=== PATIENT | female | born 1950 | race Caucasian/White ===

== ENCOUNTER 2017-05-12 15:48 | Emergency (ER) | payer MEDICARE, MEDICAID ==
[2017-05-12 16:24] VITALS: BP 00/00
--- NOTE | 2017-05-12 16:28 | UC ---
Skin Complaint HPI - HPI Summary HPI Summary: Pt presents with left forearm abrasion sustained 5 days ago. She tells me that she was getting out of bed and mis-stepped. Slide her left arm against the bed frame and sustained an abrasion to the dorsal aspect. Did not hit her head or have LOC. Her press tool maker applied neosporin and bandaged the area. She was at her pain management appointment earlier today with Dr. Kaba and he suggested pt be seen for evaluation of this abrasion. She thinks her last tetanus was within the last 5 years. - History of Current Complaint Chief Complaint: UCLaceration Time Seen by Provider: 05/12/17 16:06 Stated Complaint: ARM LACERATION Hx Obtained From: Patient, Family/Cookie Mixer Helper Pain Intensity: 2 - Allergy/Home Medications Allergies/Adverse Reactions: Allergies Allergy/AdvReac Type Severity Reaction Status Date / Time MS Hydrocortisone Allergy Severe Anaphylatic Verified 01/05/15 18:44 [From Cortizone-5] Shock hydrocortisone Allergy Swelling Verified 05/12/17 16:26 Of Face,Lips,& Throat Iodinated Contrast- Oral and Allergy Swelling Verified 05/12/17 16:26 IV Dye Of Face,Lips,& Throat meperidine [From Demerol] Allergy Swelling Verified 05/12/17 16:26 Of Face,Lips,& Throat morphine Allergy Swelling Verified 05/12/17 16:26 Of Face,Lips,& Throat Penicillins Allergy Swelling Verified 05/12/17 16:26 Of Face,Lips,& Throat bee stings Allergy Severe Swelling Uncoded 01/05/15 18:44 Of Face,Lips,& Throat hydrocortisone Allergy Anaphylatic Uncoded 05/12/17 16:27 Shock mushrooms Allergy Swelling Uncoded 01/05/15 18:44 Of Face,Lips,& Throat Review of Systems Constitutional: Negative Skin: Other - Abrasion left forearm Respiratory: Negative Cardiovascular: Negative Gastrointestinal: Negative Musculoskeletal: Negative Neurological: Negative Psychological: Negative All Other Systems Reviewed And Are Negative: Yes PMH/Surg Hx/FS Hx/Imm Hx Respiratory History: COPD, Asthma Psychological History: Anxiety Other History Of: Anticoagulant Therapy - Surgical History Surgical History: Yes Surgery Procedure, Year, and Place: Back - Family History Known Family History: Positive: Unknown - Social History Alcohol Use: None Substance Use Type: None Smoking Status (MU): Light Every Day Tobacco Smoker Household Exposure Type: Cigarettes Physical Exam - Summary Physical Exam Summary: GENERAL: NAD. WDWN. No pain distress. SKIN: 6.0cm in length and 1.0cm in width abrasion to left dorsal forearm. Yellow purulent drainage. No erythema, edema, or bleeding. No warmth or streaking. NECK: Supple. Nontender. No lymphadenopathy. CHEST: CTAB. No r/r/w. No accessory muscle use. Breathing comfortably and in no distress. CV: Pulses intact radial and ulnar. MSK: Left wrist, arm, and elbow: NTTP. Strength 5/5 including slot supervisor strength. No edema or obvious bony deformities. NEURO: Alert. Sensations intact hand and all fingers. PSYCH: Age appropriate behavior. Triage Information Reviewed: Yes Vital Signs: Initial Vital Signs Temp 98.0 F 05/12/17 16:19 Pulse 64 05/12/17 16:19 Resp 18 05/12/17 16:19 BP 00/00 05/12/17 16:19 Pulse Ox 97 05/12/17 16:19 Course/Dx - Course Course Of Treatment: Wound was dressed with mepilex. Will cover her with clindamycin. Advised to change dressing daily and f/u with PCP in 1 week. - Diagnoses Provider Diagnoses: Left forearm wound infection Discharge - Sign-Out/Discharge Documenting (check all that apply): Discharge - Discharge Plan Condition: Stable Disposition: HOME Prescriptions: Clindamycin HCl 150 mg PO TID #21 capsule Patient Education Materials: Wound Infection (DC) Referrals: Kyle Tsang MD [Primary Care Provider] - Additional Instructions: If you develop a fever, shortness of breath, chest pain, new or worsening symptoms - please call your PCP or go to the ED. 1) Please change your dressing daily. 2) Follow up in 1 week with your PCP for re-evaluation of your left arm wound. - Billing Disposition and Condition Condition: STABLE Disposition: HOME
== END 2017-05-12 17:00 | disposition home or self-care (01) ==
LOC: UCEAST 15:48
DX: S50.812A Abrasion of left forearm, initial encounter (principal); L08.9 Local infection of the skin and subcutaneous tissue, unspecified; W22.03XA Walked into furniture, initial encounter; Y93.89 Activity, other specified; Y92.003 Bedroom of unspecified non-institutional (private) residence as the place of occurrence of the external cause; J44.9 Chronic obstructive pulmonary disease, unspecified; F41.9 Anxiety disorder, unspecified; Z79.01 Long term (current) use of anticoagulants; Z88.5 Allergy status to narcotic agent; Z88.0 Allergy status to penicillin; Z88.8 Allergy status to other drugs, medicaments and biological substances; Z91.030 Bee allergy status; Z91.041 Radiographic dye allergy status; F17.210 Nicotine dependence, cigarettes, uncomplicated
CPT/HCPCS: 99212; G0463

== ENCOUNTER 2017-05-14 12:33 | Emergency (ER) | payer MEDICARE, MEDICAID ==
[2017-05-14] MEDS ORDERED: Bacitracin OINTMENT* 0.5% 0.5 oz TUBE TOPICAL ONE (13:18)
[2017-05-14 13:58] LABS: ABS Basophils 0.1 10^3/ul (0-0.2); ABS Eosinophils 0.1 10^3/ul (0-0.6); ABS Lymphocytes 2.5 10^3/ul (1.0-4.8); ABS Monocytes 0.5 10^3/ul (0-0.8); ABS Neutrophils 9.5 10^3/ul (1.5-7.7); ABS Nucleated RBC 0 10^3/ul; Eosinophil % 0.7 % (0-6); Hematocrit 44 % (35-47); Hemoglobin 14.3 g/dl (12.0-16.0); Lymphocyte % 19.9 % (25-47); Mean Corpuscular HGB Conc 33 g/dl (31-36); Mean Corpuscular Hemoglobin 30 pg (27-31); Mean Corpuscular Volume 92 fL (80-97); Mean Platelet Volume 7.7 um3 (7.4-10.4); Nucleated Red Blood Cells % 0.1; Platelet Count 236 10^3/ul (150-450); Red Blood Count 4.71 10^6/ul (4.0-5.4); Red Cell Distribution Width 14 % (10.5-15); White Blood Count 12.7 10^3/ul (3.5-10.8)
--- NOTE | 2017-05-14 14:06 | RAD ---
Indication: Pain post fall onto bilateral knees. Comparison: December 22, 2015 radiographs. Technique: AP and crosstable lateral views of the bilateral knees. Report: Bone density appears decreased throughout. Negative for joint effusions, fracture, or malalignment. Both knees demonstrate mild osteophytosis and moderate medial lateral joint space narrowing as well as chondrocalcinosis involving the hyaline articular cartilage and menisci. Mild bilateral anterior soft tissue swelling. Peripheral vascular calcifications. IMPRESSION: 1. Mild anterior soft tissue swelling without additional radiographic stigmata of traumatic injury. 2. 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 3. Chronic chondrocalcinosis of the menisci and hyaline articular cartilage.
[2017-05-14 14:13] LABS: EGFR Non-African American 52.6 (>60)
--- NOTE | 2017-05-14 14:33 | RAD ---
Indication: Pain post fall. Hit head. Comparison: January 05, 2015 CT. Technique: Noncontrast CT vertex of skull through foramen magnum. Report: Chronic severe encephalomalacia primarily involving the RIGHT frontal and parietal lobes. Decreased density in the periventricular and subcortical white matter while non-specific is most likely due to chronic microangiopathy. No new region of reyna matter white matter obscuration, intra or extra-axial hemorrhage, or mass effect. Unremarkable ventricles and basal cisterns. Unremarkable orbital contents. Negative for suspicious calvarial or skull base lesion or fracture. Clear visualized paranasal sinuses and mastoid air spaces. Negative for scalp hematoma. IMPRESSION: 1. No CT evidence for acute traumatic brain injury. 2. Extensive chronic RIGHT cerebral hemisphere encephalomalacia related to a previous stroke or other insult and stigmata of chronic small vessel ischemic disease.
--- NOTE | 2017-05-14 14:38 | RAD ---
INDICATION: Neck pain post fall. Hit head. COMPARISON: No relevant prior exams available on the [facility] PACS for comparison. TECHNIQUE: Multidetector CT images foramen magnum to lung apices without contrast. Multiplanar reformation. REPORT: Normal vertebral alignment accounting for exam positioning without spondylolisthesis or subluxation at any level. Negative for cervical vertebral body or posterior element fracture. Negative for paravertebral hematoma. 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 Mild multilevel degenerative spondylosis and facet joint osteoarthritis without significant change. No significant acquired spinal stenosis evident. IMPRESSION: No CT evidence for traumatic cervical spine injury.
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
[2017-05-14 15:01] VITALS: BP 188/70
== END 2017-05-14 15:00 | disposition home or self-care (01) ==
LOC: ED 12:33
DX: S80.02XA Contusion of left knee, initial encounter (principal); S80.01XA Contusion of right knee, initial encounter; S06.0X0A Concussion without loss of consciousness, initial encounter; W01.0XXA Fall on same level from slipping, tripping and stumbling without subsequent striking against object, initial encounter; Y92.003 Bedroom of unspecified non-institutional (private) residence as the place of occurrence of the external cause; M25.521 Pain in right elbow; F17.210 Nicotine dependence, cigarettes, uncomplicated; I10 Essential (primary) hypertension; Z79.01 Long term (current) use of anticoagulants; Z88.8 Allergy status to other drugs, medicaments and biological substances; Z91.041 Radiographic dye allergy status
CPT/HCPCS: 36415; 70450; 72125; 80053; 83605; 83880; 85025; 86140; 99283

== ENCOUNTER 2018-08-14 15:13 | Emergency (ER) | payer MEDICARE, MEDICAID ==
--- NOTE | 2018-08-14 15:54 | ED ---
Upper Extremity Pain - HPI Summary HPI Summary: 67-year-old female presents with right shoulder pain today. She denies any injury. She said pain is posterior shoulder and sometimes down the arm. Patient admits to numbness and tingling into right arm. She does admit to occasional headache but has a history of migraines. Also admits to right-sided neck pain. no weakness. No facial droop. No difficulties with speech. Has a history of cardiac disease and strokes. Is on Coumadin. No visual changes. - History of Current Complaint Chief Complaint: EDShoulderClavicAdrianna Stated Complaint: RT SHOULDER INJURY PER PT Time Seen by Provider: 08/14/18 15:20 - Allergies/Home Medications Allergies/Adverse Reactions: Allergies Allergy/AdvReac Type Severity Reaction Status Date / Time hydrocortisone Allergy Swelling Verified 08/14/18 15:18 Of Face,Lips,& Throat Iodinated Contrast- Oral and Allergy Swelling Verified 08/14/18 15:18 IV Dye Of Face,Lips,& Throat meperidine [From Demerol] Allergy Swelling Verified 08/14/18 15:18 Of Face,Lips,& Throat morphine Allergy Swelling Verified 08/14/18 15:18 Of Face,Lips,& Throat Penicillins Allergy Swelling Verified 08/14/18 15:18 Of Face,Lips,& Throat bee stings Allergy Severe Swelling Uncoded 08/14/18 15:18 Of Face,Lips,& Throat hydrocortisone Allergy Anaphylatic Uncoded 08/14/18 15:18 Shock mushrooms Allergy Swelling Uncoded 08/14/18 15:18 Of Face,Lips,& Throat PMH/Surg Hx/FS Hx/Imm Hx Endocrine/Hematology History: Reports: Hx Anticoagulant Therapy Cardiovascular History: Reports: Hx Hypertension Denies: Hx Pacemaker/ICD Musculoskeletal History: Denies: Hx Rheumatoid Arthritis, Hx Osteoporosis Sensory History: Denies: Hx Hearing Aid Psychiatric History: Denies: Hx Panic Disorder - Surgical History Surgery Procedure, Year, and Place: Back Infectious Disease History: No Infectious Disease History: Denies: Traveled Outside the [place] in Last 30 Days - Family History Known Family History: Positive: Unknown, Other - breast CA - Social History Alcohol Use: None Hx Substance Use: No Substance Use Type: Reports: None Hx Tobacco Use: Yes Smoking Status (MU): Light Every Day Tobacco Smoker Review of Systems Negative: Fever Negative: Chest Pain Negative: Shortness Of Breath Positive: Myalgia - right shoulder pain All Other Systems Reviewed And Are Negative: Yes Physical Exam Triage Information Reviewed: Yes Vital Signs On Initial Exam: Initial Vitals Temp Pulse Resp BP Pulse Ox 98.2 F 67 20 145/87 96 08/14/18 15:16 08/14/18 15:16 08/14/18 15:16 08/14/18 15:16 08/14/18 15:16 Vital Signs Reviewed: Yes Appearance: Positive: Well-Appearing Skin: Positive: Warm, Dry Head/Face: Positive: Normal Head/Face Inspection Eyes: Positive: Normal, Conjunctiva Clear ENT: Positive: Pharynx normal Respiratory/Lung Sounds: Positive: Clear to Auscultation, Breath Sounds Present Cardiovascular: Positive: Normal, RRR Abdomen Description: Positive: Nontender, Soft Bowel Sounds: Positive: Present Musculoskeletal: Positive: Limited @ - right shoulder, Other - good pulses, tenderness right shoulder, unable to raise arms without pain, pos boogie, sensation grossly intact, tenderness right side of neck, no midline tenderness, Full ROM neck, good optometric tech strength Neurological: Positive: Normal Psychiatric: Positive: Normal Diagnostics - Vital Signs Vital Signs Temp Pulse Resp BP Pulse Ox 08/14/18 15:16 98.2 F 67 20 145/87 96 - Laboratory Result Diagrams: 08/14/18 16:23 08/14/18 16:23 Lab Statement: Any lab studies that have been ordered have been reviewed, and results considered in the medical decision making process. - Radiology brain CT Radiology Interpretation Completed By: Radiologist Summary of Radiographic Findings: IMPRESSION: 1. NO ACUTE INTRACRANIAL PATHOLOGY. 2. CHRONIC SMALL VESSEL ISCHEMIC CHANGE WITH REMOTE RIGHT MCA TERRITORY INFARCT. neck Radiology Interpretation Completed By: Radiologist Summary of Radiographic Findings: IMPRESSION: DEGENERATIVE DISC DISEASE AND OSTEOARTHRITIS. NO ACUTE OSSEOUS INJURY TO THE CERVICAL SPINE. shoulder Radiology Interpretation Completed By: Radiologist Summary of Radiographic Findings: REPORT AND IMPRESSION: #. Negative for fracture. #. Normal acromioclavicular and glenohumeral joint alignment. #. Mild AC joint and glenohumeral joint osteoarthritis with progression. #. Small burden of calcific tendinopathy at the level of the infraspinatus tendon new. compared with the prior exam. #. Unremarkable soft tissue contours. - EKG No standard instances Cardiac Rate: NL EKG Rhythm: Sinus Rhythm Summary of EKG Findings: sinus rhythm Course/Dx - Course Course Of Treatment: 67-year-old female presents with right shoulder pain today. She denies any injury. She said pain is posterior shoulder and sometimes down the arm. Patient admits to numbness and tingling into right arm. She does admit to occasional headache but has a history of migraines. Also admits to right-sided neck pain. no weakness. No facial droop. No difficulties with speech. Has a history of cardiac disease and strokes. Is on Coumadin. No visual changes. On exam tenderness over right shoulder. Limited range of motion right shoulder. Tenderness right side neck. CT brain no acute findings. CT neck also no acute findings. Shoulder shows arthritis. wbc 12. inr is low at 1.3 so will have follow up with primary about such. troponin .01. ekg shows sinus rhythm. discussed will add on lidoderm for pain. told follow up with primary and ortho if no improvement. told return if develop any chest pain or SOB. patient understand and agrees with plan. - Diagnoses Differential Diagnosis/HQI/PQRI: Positive: Fracture (Closed), Strain, Sprain Provider Diagnoses: Right shoulder pain Discharge - Sign-Out/Discharge Documenting (check all that apply): Patient Departure Patient Received Moderate/Deep Sedation with Procedure: No - Discharge Plan Condition: Good Disposition: HOME Prescriptions: Lidocaine PATCH 5%* [Lidoderm 5% Patch*] 1 patch TRANSDERM DAILY #6 patch Patient Education Materials: Shoulder Pain (ED) Referrals: Jesús Ge MD [Primary Care Provider] - Henrik Manjarrez MD [Medical Doctor] - Additional Instructions: inr is low today at 1.3 call primary about results to ask what should do about warfarin dosing Take Tylenol every 6 hours as needed for pain apply lidoderm patch apply for 12 hours then remove for 12 hours heat area Can rest for one day and then need to do range of motion activities for shoulder Follow up with ortho if no improvement Return to ED if develop any new or worsening symptoms - Billing Disposition and Condition Condition: GOOD Disposition: Home
--- OUTSIDE RECORDS SUMMARY | 2018-08-14 16:03 | XMS REPORT | Continuity of Care Document ---
:1950 External Reference #:[id number] Author Name Sissy Yuen Care Team Providers Name Role Phone Jesús Ge MD Primary Care Physician Unavailable Payers Date Identification Numbers Payment Provider Subscriber Effective: 2000 Policy Number: [id number] Medicare Debbieanne Pappas PayID: [id number] [address] [place] [address] Effective: 2015 Policy Number: [facility] Medicare Solutions Debbieanne Pappas [id number] Expires: 2015 PayID: [id number] [address] [address] [place] [address] Policy Number: [id number] Medicaid Debbieanne Pappas PayID: [id number] [address] [place] [address] Problems Active Problems Provider Date Essential hypertension Dominic Enciso M.D. Onset: 05/04/2015 Impaired fasting glycaemia Dominic Enciso M.D. Onset: 05/04/2015 Ischemic stroke Dominic Enciso M.D. Onset: 05/04/2015 Asthma Dominic Enciso M.D. Onset: 05/04/2015 Hyperlipidemia Dominic Enciso M.D. Onset: 05/04/2015 Migraine Dominic Enciso M.D. Onset: 05/04/2015 Neck pain Dominic Enciso M.D. Onset: 05/04/2015 Backache Dominic Enciso M.D. Onset: 05/04/2015 Anticoagulant therapy Dominic Enciso M.D. Onset: 05/04/2015 Type 2 diabetes mellitus Kyle Tsang M.D. Onset: 04/14/2016 Age-related osteoporosis without current Kyle Tsang M.D. Onset: 2016 pathological fracture Bladder muscle dysfunction - overactive Kyle Tsang M.D. Onset: 2016 Tobacco user Kyle Tsang M.D. Onset: 10/28/2016 Mixed hyperlipidemia Kyle Tsang M.D. Onset: 04/24/2017 Migraine with typical aura Kyle Tsang M.D. Onset: 07/25/2017 Low back pain Jesús Ge MD Onset: 11/16/2017 Anxiety state Jesús Ge MD Onset: 11/16/2017 Acute sinusitis Jesús Ge MD Onset: 11/16/2017 Hypercalcemia Jesús Ge MD Onset: 11/30/2017 Gastroesophageal reflux disease Jesús Ge MD Onset: 11/30/2017 Malaise and fatigue Jesús Ge MD Onset: 05/03/2018 Chronic obstructive lung disease Jesús Ge MD Onset: 05/29/2018 Dyspnea Jesús Ge MD Onset: 05/29/2018 Cough Jesús Ge MD Onset: 05/29/2018 Family History Date Family Member(s) Observation Comments : (age 50 Years) Father due to Heart attack : (age 80 Years) Mother due to Pancreatic cancer Social History Type Date Description Comments Sex Unknown Marital Status Single Lives With Alone Occupation Retired. Counselor Tobacco Use Start: Unknown current cigarette smoker ETOH Use Has consumed alcohol in [place] every day. the past Quit 15 yeras ago Recreational Drug Use Denies Drug Use Tobacco Use Start: Unknown Patient is a current smoker, smokes every day Smoking Status Reviewed: 08/09/18 Patient is a current smoker, smokes every day Exercise Type/Frequency Does not exercise Allergies, Adverse Reactions, Alerts Active Allergies Reaction Severity Comments Date Mushrooms 01/09/2014 Bee Stings 01/09/2014 Penicillin 01/09/2014 Morphine 01/09/2014 Demerol 01/09/2014 Iodine if injected 01/18/2018 Medications Active Medications SIG Qnty Indications Ordering Date Provider Vesicare 1 by mouth every day 30tabs [facility] 08/06/2018 10mg Tablets Senner, DO Omeprazole 1 by mouth every day 90caps [facility] 08/06/2018 40mg Senner, DO Capsules Tizanidine HCL every 8 hrs prn 60tabs [facility] 08/06/2018 2mg muscle spasms Senner, DO Tablets Spiriva Respimat 1 inhalation daily. 4gm J44.9 Jesús Ge MD 05/29/2018 2.5mcg/Act Aerosol Pioglitazone HCL take 1 tab daily 30tabs E11.9 [facility] 11/30/2017 45mg Senner, DO Tablets Atorvastatin Calcium 1 tab daily 30tabs E78.2 Jesús Ge MD 11/30/2017 40mg Tablets [facility] Nicotine use daily for 4 28units F17.210 Jesús Ge MD 11/16/2017 Transdermal weeks. System/Step 3 7mg/24HR Patches 24HR Blood Pressure Kit Check twice a day 1units I10 Jesús Ge MD 11/16/2017 and record in a log Kit book Amlodipine Besylate take 1 tab each day. 30tabs I10 [facility] 11/16/2017 Senner, DO 10mg Tablets Topamax 1 tab by mouth at 90tabs G40.909 [place] 07/25/2017 100mg Tablets bedtime Erica Tsang Metformin HCL taking once a day--1 60tabs E11.9 [place] 07/25/2017 500mg by mouth twice a day Roberta Tsang M.D. Sumatriptan use at onset of head 14tabs G43.109 [facility] 07/25/2017 Succinate ache,may repeat Senner, DO 100mg after 2h as needed Tablets Losartan Potassium 1 by mouth once a 30tabs E11.9 [facility] 09/16/2016 day Senner, DO 25mg Tablets On[facility] Ultrasoft test blood 2-3 a day 100units E11.9 [place] 04/14/2016 Lancets or as needed dx Akua Tsang e11.9 MoniDPreet [employer] Verio test blood gulcose 100units E11.9 Jesús Ge MD 04/14/2016 twice weekly and as Strips needed for diabetes mellitus Onet[facility] Verio use as directed 1units E11.9 [place] 04/14/2016 Pachikara, w/Device Kit M.D. Depend Pant Extra use 4x a day 120units [place] 12/24/2015 Large Akua Tsang M.D. [facility] Monitor check blood Pachdeisy, Automatic/Arm pressure. dx i10 M.D. Device Clotrimazole apply twice daily 45gm B37.9 Jesús Ge MD 12/22/2015 1% Cream Epipen 2-Kiran [facility].3[facility] 09/16/2015 in thigh; may repeat Pachikara, 0.3mg/0.3ML Solution if needed M.D. Auto-Inject Advair Diskus [facility]ale [facility] puff [facility] 08/31/2015 mouth twice a day as Pachikara, 250-50mcg/Dose needed M.D. Aerosol Warfarin Sodium 2 mg everyday 120tabs Jesús Ge MD 06/01/2015 1mg (Managed by Dr. Roberta Ge) Acetaminophen 2 every 6 hours as Unknown 500mg needed Tablets Metoprolol Succinate 1 tab daily 30tabs [place] ER Pachikara, 50mg Tablets ER M.D. 24HR Nexium 1 capsule daily as 30caps [place] 20mg Capsules needed. DR Erica Tsang Albuterol Sulfate 1 vial via nebulizer 90ml [place] 4 times daily as Pachikara, (2.5mg/3ML) 0.083% needed M.D. Nebulizer Diazepam 1/2-1 tab every day 30tabs Cindi 5mg Tablets as needed Senner, DO History Medications Prednisone take 2 tab daily 12tabs J44.9 Jesús Ge MD 05/29/2018 - 20mg for 4 days then 08/01/2018 Tablets tab for 4 days. Azithromycin take 2 tabs on 6tabs J44.9 Jesús Ge MD 05/29/2018 - 250mg first day then 08/01/2018 Tablets tab for next 4 days. Azithromycin take 2 tabs on 6tabs J01.90 Jesús Ge MD 01/18/2018 - 250mg first day then 1 04/22/2018 Tablets tab for next [address] days[address] [facility] Nicotine use 1 patch 28units F17.210 Jesús Ge MD 11/30/2017 - Transdermal daily. 08/01/2018 System/Step 3 7mg/24HR Patches 24HR Azithromycin Take 2 tabs on 6tabs J01.90 Jesús Ge MD 11/30/2017 - 250mg first day then 1 01/18/2018 Tablets tab for next 4 days. Omeprazole take 1 tab daily 30caps K21.9 Jesús Ge MD 11/30/2017 - 40mg 08/09/[address] Rousseau use every 2 hours 168units F17.210 Jesús Ge MD 11/16/2017 - 10mg Inhaler as needed for 05/03/2018 nicotine cravings. Vesicare take 1 tab daily 30tabs Jesús Ge MD 11/16/2017 - 10mg Tablets 08/09/2018 Clindamycin HCL one capsule by 1caps Unknown 05/13/2017 - 150mg mouth three times 05/20/2017 Capsules a day for 7 days Azithromycin 2 tab today and 6tabs J01.90 [place] 04/24/2017 - 250mg then 1tab daily Pachikara, 05/25/2017 Tablets M.D. Nicotine 1 apply patch 30units F17.210 [place] 01/24/2017 - 14mg/24HR topically every Pachikara, 07/24/2017 Patches 24HR 24 hours. M.D. Levofloxacin once daily 10tabs H66.91 [place] 10/28/2016 - 500mg Pachikara, 05/25/2017 Tablets M.D. Nicotine Polacrilex 4 times a day as 120units F17.210 [place] 09/16/2016 - needed Pachikara, 07/24/2017 2mg Gum M.D. Vitamin K 1mg by mouth x 1 1units [place] 05/31/2016 - Pachikara, 06/01/2016 M.D. Vesicare once daily 30tabs [place] 05/06/2016 - 10mg Tablets Pachikara, 11/16/2017 M.D. Tessalon Perles 1 caps by mouth 30caps [place] 08/31/2015 - 100mg three times a day Pachikara, 08/01/2018 Capsules as needed M.D. Valsartan 2 tabs by mouth 90tabs I10 Jeff Babcock, 06/12/2015 - 80mg every day [employer] 04/29/2016 Tablets Valsartan 1 tab po daily 30tabs I10 Jeff Swedish, 05/25/2015 - 40mg [employer]CE[employer] 06/12/2015 Tablets Vesicare 1 by mouth every 30tabs N32.81 Jeff Babcock, 05/25/2015 - 5mg Tablets day [employer] 05/06/2016 Mephyton take 1 tab by 1tabs Jeff Babcock, 05/12/2015 - 5mg Tablets mouth [employer] 12/22/2015 Topamax 1 tab by mouth at 90tabs G40.909 [place] 12/23/2011 - 100mg Tablets bedtime [facility], 07/24/2017 M.D. Oxybutynin Chloride 1 po daily 30tabs Jeff Babcock, - ER [employer] 06/24/2015 10mg Tablets ER 24HR Crestor 1 tab by mouth at 30tabs [place] - 40mg Tablets at bedtime [facility], 11/16/2017 M.D. Pioglitazone HCL Unknown - 45mg 05/05/2015 Tablets Fentanyl Apply 1 [place] Unknown - 50mcg/HR Every 48 Hours as 07/18/2017 Patches 72HR Directed Oxymorphone HCL 1 q6h prn Unknown - 5mg 07/18/2017 Tablets Warfarin Sodium Unknown - 3mg 05/04/2015 Tablets Oxybutynin Chloride 1 po daily 30tabs Jeff Babcock, - ER [employer] 06/24/2015 15mg Tablets ER 24HR Tizanidine HCL every 8 hours as 30tabs Cindi - 2mg needed for muscle Senner, DO 08/09/2018 Tablets spasms Proair HFA 2 puffs every 6 25.5gm [place] - hours as needed [facility], 08/09/2018 108(90Base) mcg/Act sob M.D. Aerosol Advair Diskus Unknown - 08/31/2015 100-50mcg/Dose Aerosol Trazodone HCL 1 tab at bedtime 30tabs [place] - 100mg prn Pachikara, 07/24/2017 Tablets MChase Montelukast Sodium Unknown - 10/28/2016 10mg Tablets Nasonex Unknown - 50mcg/Act 08/01/2018 Suspension Warfarin Sodium 1 by mouth every 90tabs [place] - 4mg night or as Pachikara, 11/16/2017 Tablets directed MChase Ranitidine HCL 1 tab by mouth 90tabs [place] - 150mg daily [place], 11/30/2017 Tablets Erica,FACP Immunizations CPT Code Status Date Vaccine Lot # [id number] Given 04/14/2016 Pneumonia Vaccine [id number] Vital Signs Date Vital Result Comment 08/09/2018 1:23pm Height 65 inches 5'5" Weight 211.00 lb Heart Rate 67 /min BP Systolic 170 mmHg BP Diastolic 100 mmHg O2 % BldC Oximetry 97 % BMI (Body Mass Index) 35.1 kg/m2 08/02/2018 2:52pm Height 65 inches 5'5" Weight 225.00 lb Heart Rate 52 /min BP Systolic Sitting 178 mmHg BP Diastolic Sitting 80 mmHg O2 % BldC Oximetry 97 % Room air BMI (Body Mass Index) 37.4 kg/m2 06/05/2018 3:44pm Heart Rate 76 /min BP Systolic 160 mmHg BP Diastolic 78 mmHg Respiratory Rate 18 /min Body Temperature 98.8 F O2 % BldC Oximetry 96 % 05/29/2018 3:10pm Weight 225.00 lb Heart Rate 96 /min BP Systolic 190 mmHg BP Diastolic 86 mmHg Respiratory Rate 22 /min Body Temperature 99.8 F O2 % BldC Oximetry 90 % Ra at rest 05/03/2018 2:58pm Heart Rate 78 /min BP Systolic 158 mmHg BP Diastolic 90 mmHg Respiratory Rate 18 /min Body Temperature 99.1 F Pain Level 3 L hip O2 % BldC Oximetry 98 % 01/18/2018 1:49pm Weight 229.00 lb Heart Rate 80 /min BP Systolic 136 mmHg BP Diastolic 90 mmHg Respiratory Rate 18 /min Body Temperature 98.4 F Pain Level 5 sinus ears back O2 % BldC Oximetry 96 % 11/30/2017 1:43pm Weight 228.00 lb Heart Rate 80 /min BP Systolic 154 mmHg Rue BP Diastolic 88 mmHg Rue Respiratory Rate 18 /min Body Temperature 99.7 F Pain Level 10 O2 % BldC Oximetry 98 % 11/16/2017 1:50pm Weight 224.00 lb Heart Rate 72 /min BP Systolic 218 mmHg BP Diastolic 86 mmHg Respiratory Rate 18 /min Body Temperature 98.2 F Pain Level 10 low back 07/25/2017 3:47pm Weight 218.00 lb Heart Rate 68 /min BP Systolic Sitting 168 mmHg R arm lrg cuff BP Diastolic Sitting 90 mmHg R arm lrg cuff Respiratory Rate 18 /min Pain Level 4 06/27/2017 11:23am Height 65 inches 5'5" Weight 215.00 lb Heart Rate 63 /min BP Systolic 142 mmHg BP Diastolic 82 mmHg O2 % BldC Oximetry 96 % BMI (Body Mass Index) 35.8 kg/m2 05/25/2017 1:42pm Weight 219.00 lb Heart Rate 65 /min BP Systolic 132 mmHg BP Diastolic 60 mmHg Body Temperature 97.7 F O2 % BldC Oximetry 94 % 04/24/2017 1:55pm Height 65 inches 5'5" Heart Rate 66 /min BP Systolic 150 mmHg BP Diastolic 80 mmHg Body Temperature 100.7 F O2 % BldC Oximetry 97 % 01/24/2017 11:23am Weight 228.00 lb Heart Rate 56 /min BP Systolic Sitting 138 mmHg BP Diastolic Sitting 80 mmHg O2 % BldC Oximetry 97 % 10/28/2016 1:51pm Height 65 inches 5'5" Weight 228.00 lb Heart Rate 57 /min BP Systolic 130 mmHg BP Diastolic 68 mmHg Body Temperature 98.6 F O2 % BldC Oximetry 95 % BMI (Body Mass Index) 37.9 kg/m2 09/16/2016 11:24am Height 65 inches 5'5" Weight 230.00 lb Heart Rate 66 /min BP Systolic 118 mmHg BP Diastolic 66 mmHg Pain Level 99 O2 % BldC Oximetry 93 % BMI (Body Mass Index) 38.3 kg/m2 04/29/2016 1:48pm Weight 235.00 lb Heart Rate 104 /min BP Systolic Sitting 170 mmHg BP Diastolic Sitting 60 mmHg Body Temperature 97.9 F O2 % BldC Oximetry 97 % 04/14/2016 2:23pm Weight 234.00 lb Heart Rate 66 /min BP Systolic Sitting 150 mmHg BP Diastolic Sitting 86 mmHg Respiratory Rate 15 /min Body Temperature 98.2 F O2 % BldC Oximetry 97 % 12/22/2015 2:24pm Height 65 inches 5'5" Weight 228.12 lb Heart Rate 66 /min BP Systolic Sitting 189 mmHg BP Diastolic Sitting 84 mmHg Body Temperature 98.1 F O2 % BldC Oximetry 97 % BMI (Body Mass Index) 38.0 kg/m2 06/12/2015 3:18pm Height 65 inches 5'5" Weight 243.00 lb Heart Rate 60 /min BP Systolic Sitting 172 mmHg BP Diastolic Sitting 70 mmHg Body Temperature 98.2 F O2 % BldC Oximetry 98 % BMI (Body Mass Index) 40.4 kg/m2 05/25/2015 1:39pm Height 65 inches 5'5" Weight 246.00 lb Heart Rate 86 /min recheck P 60 BP Systolic Sitting 200 mmHg recheck 190/84 BP Diastolic Sitting 66 mmHg recheck 190/84 Body Temperature 97.7 F O2 % BldC Oximetry 96 % BMI (Body Mass Index) 40.9 kg/m2 05/04/2015 1:41pm Height 65 inches 5'5" Weight 250.38 lb Heart Rate 84 /min BP Systolic Sitting 150 mmHg BP Diastolic Sitting 90 mmHg Body Temperature 98.1 F O2 % BldC Oximetry 97 % BMI (Body Mass Index) 41.7 kg/m2 01/09/2014 1:51pm Height 65 inches 5'5" Weight 237.00 lb Heart Rate 72 /min BP Systolic Sitting 120 mmHg BP Diastolic Sitting 80 mmHg Respiratory Rate 16 /min BMI (Body Mass Index) 39.4 kg/m2 Results Test Date Facility Test Result H/L Range Note Inr/Protime 08/02/2018 [facility] Inr 0.91 N 0.82-1.[address] [place] [address] [phone] Laboratory test 05/29/2018 [facility] B-Type 39 pg/mL <=[address] [place] [address] Peptide BNP [phone] CBC Auto Diff 05/29/2018 [facility] White Blood 9.8 10^3/uL N 3.5-10.[address] [place] [address] [phone] Red Blood Count 4.79 10^6/uL N 3.70-4.87 Hemoglobin 14.5 g/dL N 12.0-16.0 Hematocrit 43 % High 33-41 Mean Corpuscular Volume 90 fL N 80-97 Mean Corpuscular Hemoglobin 30 pg N 27-31 Mean Corpuscular HGB Conc 34 g/dL N 31-36 Red Cell Distribution Width 14 % N 10.5-15 Platelet Count 215 10^3/uL N 150-450 Mean Platelet Volume 8.8 fL N 7.4-10.4 Abs Neutrophils 5.9 10^3/uL N 1.5-7.7 Abs Lymphocytes 3.1 10^3/uL N 1.0-4.8 Abs Monocytes 0.5 10^3/uL N 0-0.8 Abs Eosinophils 0.2 10^3/uL N 0-0.6 Abs Basophils 0 10^3/uL N 0-0.2 Abs Nucleated RBC 0 10^3/uL Granulocyte % 60.7 % Lymphocyte % 32.1 % Monocyte % 4.9 % Eosinophil % 1.8 % Basophil % 0.5 % Nucleated Red Blood Cells % 0.1 Laboratory test 05/29/2018 [facility] C Reactive 44.84 mg/L High <8.01 finding [address] [place], [place] [id number] [phone] Basic Metabolic 05/29/2018 [facility] Sodium 141 mmol/L N 135- 145 Panel [address] [place] [address] [phone] Potassium 4.4 mmol/L N 3.5-5.0 Chloride 108 mmol/L N 101-111 Co2 Carbon Dioxide 24 mmol/L N 22-32 Anion Gap 9 mmol/L N 2-11 Glucose 136 mg/dL High 70-100 Blood Urea Nitrogen 13 mg/dL N 6-24 Creatinine 1.06 mg/dL High 0.51-0.95 BUN/Creatinine Ratio 12.3 N 8-20 Calcium 10.1 mg/dL N 8.6-10.3 Egfr Non- 51.9 >60 Egfr 62.8 >60 2 Rapid Influenza 05/03/2018 [facility] Influenza A NEGATIVE Negative 3 A & B Molecular [address] [place] [address] [phone] Influenza B Molecular NEGATIVE Negative Laboratory test 05/03/2018 [facility] Hemoglobin A1c 7.3 % High 4.0-5.6 4 finding [address] (Glyco HGB) [place], [place] [id number] [phone] Laboratory test 05/03/2018 [facility] Rapid SEE RESULT [address] [place] [address] Antigen [phone] Protime W/ Inr 02/01/2018 [facility] Inr 2.3 Laboratory test 01/18/2018 [facility] Vitamin D 12.1 ng/mL Low 20-[address] Total 25(Oh) [place], [place] [id number] [phone] Pthi 01/18/2018 [facility] Calcium (PTH 10.6 mg/dL High 8.6- 10.[address] Intact) [place] [address] [phone] PTH Intact 12.5 pmol/L High 1.3-9.3 Laboratory test 01/18/2018 [facility] TSH (Thyroid 4.34 N 0.34 -5.[address] Stim Horm) mcIU/mL [place], [place] [id number] [phone] 1,25 Dihydroxy 01/18/2018 [facility] Calcitriol 42 pg/mL 18- 78 6 Vitamin D [address] [place] [address] [phone] Laboratory test 01/18/2018 [facility] PTH Related 0.5 pmol/L <2.0 [address] [place] [address] [phone] Basic Metabolic 01/18/2018 [facility] Sodium 140 mmol/L N 135- [address] [place] [address] [phone] Potassium 4.4 mmol/L N 3.5-5.0 Chloride 110 mmol/L N 101-111 Co2 Carbon Dioxide 23 mmol/L N 22-32 Anion Gap 7 mmol/L N 2-11 Glucose 145 mg/dL High 70-100 Blood Urea Nitrogen 22 mg/dL N 6-24 Creatinine 1.18 mg/dL High 0.51-0.95 BUN/Creatinine Ratio 18.6 N 8-20 Calcium 10.7 mg/dL High 8.6-10.3 Egfr Non- 45.8 >60 Egfr 55.5 >60 8 Protime W/ Inr 01/15/2018 [facility] Inr 2.7 Protime W/ Inr 12/15/2017 [facility] Inr 2.3 Protime W/ Inr 12/04/2017 [facility] Inr 2.5 Protime W/ Inr 12/04/2017 Other [facility] Inr 2.5 Protime W/ Inr 11/24/2017 Other R[facility] Inr 3.0 Laboratory test 11/16/2017 [facility] Hemoglobin A1c 8.1 % High 4.0-5.6 [address] (Glyco HGB) [place] [address] [phone] Urine Microalbumin 11/16/2017 [facility] Ur Microalbumin 71.[address] (mg/L) [place] [address] [phone] Urine Creatinine 215.24 mg/dL Urine Microalbumin/Creatinine 33.4 High <31 Basic Metabolic Panel 11/16/2017 [facility] Sodium 140 mmol/L N 135-[address] [place] [address] [phone] Potassium 4.4 mmol/L N 3.5-5.0 Chloride 109 mmol/L N 101-111 Co2 Carbon Dioxide 24 mmol/L N 22-32 Anion Gap 7 mmol/L N 2-11 Glucose 201 mg/dL High 70-100 Blood Urea Nitrogen 16 mg/dL N 6-24 Creatinine 1.04 mg/dL High 0.51-0.95 BUN/Creatinine Ratio 15.4 N 8-20 Calcium 11.3 mg/dL High 8.6-10.3 Egfr Non- 53.0 >60 Egfr 64.2 >60 10 CBC No Diff 11/16/2017 [facility] White Blood 13.4 10^3/uL High 3.5-10.[address] [place] [address] [phone] Red Blood Count 4.39 10^6/uL N 4.00-5.40 Hemoglobin 13.6 g/dL N 12.0-16.0 Hematocrit 41 % N 35-47 Mean Corpuscular Volume 93 fL N 80-97 Mean Corpuscular Hemoglobin 31 pg N 27-31 Mean Corpuscular HGB Conc 33 g/dL N 31-36 Red Cell Distribution Width 14 % N 10.5-15 Platelet Count 258 10^3/uL N 150-450 Mean Platelet Volume 8.3 um3 N 7.4-10.4 Lipid Profile 11/16/2017 [facility] Triglycerides 249 mg/dL 11 (Trig/Chol/HDL) [address] [place] [address] [phone] Cholesterol 189 mg/dL 12 HDL Cholesterol 48.2 mg/dL 13 LDL Cholesterol 91 mg/dL 14 Protime W/ Inr 11/10/2017 [facility] Inr 2.3 Protime W/ Inr 11/02/2017 Other [facility] Prothrombin Time <pending> Inr 3.1 Protime W/ Inr 10/26/2017 [facility] Inr 2.7 Protime W/ Inr 10/17/2017 [facility] Inr 2.5 Protime W/ Inr 10/11/2017 Other Rendering Inr 2.4 Protime W/ Inr 10/04/2017 Other Rendering Inr 2.3 Protime W/ Inr 09/27/2017 Other Rendering Inr 2.0 Protime W/ Inr 09/20/2017 Other Rendering Inr 1.9 Protime W/ Inr 09/13/2017 Other Rendering Inr 2.9 Protime W/ Inr 09/07/2017 Other Rendering Inr 2.3 Protime W/ Inr 08/31/2017 Other Rendering Inr 2.5 Protime W/ Inr 08/17/2017 Other Rendering Inr 2.9 Protime W/ Inr 08/09/2017 Other Rendering Inr 2.9 Protime W/ Inr 08/02/2017 Other Rendering Inr 3.0 Protime W/ Inr 07/26/2017 Other Rendering Inr 2.0 Laboratory test 07/25/2017 [facility] In House Hemoglobin A1c 7.6 High 5-7 finding Protime W/ Inr 07/20/2017 Other Rendering Inr 2.1 Protime W/ Inr 07/12/2017 Other Rendering Inr 2.2 Protime W/ Inr 07/05/2017 Other Rendering Inr 2.0 Protime W/ Inr 06/28/2017 Other Rendering Inr 2.0 Protime W/ Inr 06/21/2017 Other Rendering Inr 2.1 Protime W/ Inr 06/15/2017 Other Rendering Inr 2.3 Protime W/ Inr 06/15/2017 Other Rendering Inr 2.3 Protime W/ Inr 06/07/2017 Other Rendering Inr 2.1 Protime W/ Inr 05/31/2017 Other Rendering Inr 2.0 Laboratory test 05/25/2017 [facility] In House Hemoglobin A1c 6.7 5-7 finding Laboratory test 05/25/2017 [facility] In House Hemoglobin A1c 6.7 5-7 finding Protime W/ Inr 05/24/2017 Other R[facility] Inr 2.2 Protime W/ Inr 05/17/2017 Other Rendering Inr 2.8 Laboratory test 05/14/2017 [facility] C Reactive 7.53 mg/L High < 5.00 [address] [place] [address] [phone] Lactic Acid 1.0 mmol/L N 0.5-2.0 16 B-Type Natriuretic Peptide BNP 92 pg/mL 17 Comp Metabolic Panel 05/14/2017 [facility] Sodium 141 mmol/L N 133-[address] [place] [address] [phone] Potassium 3.7 mmol/L N 3.5-5.0 Chloride 109 mmol/L N 101-111 Co2 Carbon Dioxide 26 mmol/L N 22-32 Anion Gap 6 mmol/L N 2-11 Glucose 159 mg/dL High 70-100 Blood Urea Nitrogen 14 mg/dL N 6-24 Creatinine 1.05 mg/dL High 0.51-0.95 BUN/Creatinine Ratio 13.3 N 8-20 Calcium 10.6 mg/dL High 8.6-10.3 Total Protein 7.2 g/dL N 6.4-8.9 Albumin 4.2 g/dL N 3.2-5.2 Globulin 3.0 g/dL N 2-4 Albumin/Globulin Ratio 1.4 N 1-3 Total Bilirubin 0.60 mg/dL N 0.2-1.0 Alkaline Phosphatase 66 U/L N 34-104 Alt 7 U/L N 7-52 Ast 8 U/L Low 13-39 Egfr Non- 52.6 >60 Egfr 67.6 >60 18 CBC Auto 05/14/2017 [facility] White Blood 12.7 10^3/uL High 3.5-10.[address] [place] [address] [phone] Red Blood Count 4.71 10^6/uL N 4.0-5.4 Hemoglobin 14.3 g/dL N 12.0-16.0 Hematocrit 44 % N 35-47 Mean Corpuscular Volume 92 fL N 80-97 Mean Corpuscular Hemoglobin 30 pg N 27-31 Mean Corpuscular HGB Conc 33 g/dL N 31-36 Red Cell Distribution Width 14 % N 10.5-15 Platelet Count 236 10^3/uL N 150-450 Mean Platelet Volume 7.7 um3 N 7.4-10.4 Abs Neutrophils 9.5 10^3/uL High 1.5-7.7 Abs Lymphocytes 2.5 10^3/uL N 1.0-4.8 Abs Monocytes 0.5 10^3/uL N 0-0.8 Abs Eosinophils 0.1 10^3/uL N 0-0.6 Abs Basophils 0.1 10^3/uL N 0-0.2 Abs Nucleated RBC 0 10^3/uL Granulocyte % 74.5 % N 38-83 Lymphocyte % 19.9 % Low 25-47 Monocyte % 4.0 % N 0-7 Eosinophil % 0.7 % N 0-6 Basophil % 0.9 % N 0-2 Nucleated Red Blood Cells % 0.1 Protime W/ Inr 05/10/2017 Other Rendering Inr 2.0 Protime W/ Inr 05/02/2017 Other Rendering Inr 2.0 Protime W/ Inr 04/24/2017 Other Rendering Inr 2.1 Protime W/ Inr 04/19/2017 Other Rendering Inr 2.2 Protime W/ Inr 04/11/2017 Other Rendering Inr 2.2 Protime W/ Inr 04/05/2017 Other Rendering Inr 2.2 Protime W/ Inr 03/29/2017 Other Rendering Inr 2.0 Protime W/ Inr 03/22/2017 Other Rendering Inr 1.5 Protime W/ Inr 03/15/2017 Other Rendering Inr 1.7 Protime W/ Inr 03/08/2017 Other Rendering Inr 1.9 Protime W/ Inr 02/28/2017 Other Rendering Inr 2.0 Protime W/ Inr 02/22/2017 Other Rendering Inr 2.1 Protime W/ Inr 02/16/2017 Other Rendering Inr 2.2 Protime W/ Inr 02/08/2017 Other Rendering Inr 2.4 Protime W/ Inr 02/01/2017 Other Rendering Inr 2.5 Protime W/ Inr 01/26/2017 Other Rendering Inr 2.7 Laboratory test finding 01/24/2017 [facility] In House Hemoglobin A1c 6.7 5-7 Protime W/ Inr 01/18/2017 Other Rendering Inr 2.5 Protime W/ Inr 01/11/2017 Other Rendering Inr 2.8 Protime W/ Inr 01/06/2017 Other Rendering Inr 2.9 Protime W/ Inr 12/20/2016 Other Rendering Inr 3.1 Protime W/ Inr 12/15/2016 Other Rendering Inr 3.2 Protime W/ Inr 12/07/2016 Other Rendering Inr 2.4 Protime W/ Inr 12/01/2016 Other Rendering Inr 2.1 Protime W/ Inr 11/23/2016 Other Rendering Inr 2.0 Protime W/ Inr 11/17/2016 Other Rendering Inr 3.0 Protime W/ Inr 11/09/2016 Other Rendering Inr 2.2 Protime W/ Inr 2016 Other Rendering Inr 2.2 Protime W/ Inr 10/26/2016 Other Rendering Inr 2.4 Protime W/ Inr 10/20/2016 Other Rendering Inr 2.6 Protime W/ Inr 10/17/2016 Other Rendering Inr 2.7 Protime W/ Inr 10/12/2016 Other Rendering Inr 2.9 Protime W/ Inr 10/05/2016 Other Rendering Inr 3.0 Protime W/ Inr 09/29/2016 Other Rendering Inr 3.0 Protime W/ Inr 09/23/2016 Other Rendering Inr 3.1 Protime W/ Inr 09/16/2016 Other Rendering Inr 3.0 Protime W/ Inr 09/07/2016 Other Rendering Inr 2.9 Protime W/ Inr 08/31/2016 Other Rendering Inr 3.3 Protime W/ Inr 08/30/2016 Other Rendering Inr 2.5 Protime W/ Inr 08/16/2016 Other Rendering Inr 2.1 Protime W/ Inr 08/09/2016 Other Rendering Inr 2.8 Protime W/ Inr 08/02/2016 Other Rendering Inr 3.4 Protime W/ Inr 07/26/2016 Other Rendering Inr 3.3 Protime W/ Inr 07/20/2016 Other Rendering Inr 3.1 Protime W/ Inr 07/12/2016 Other Rendering Inr 2.3 Protime W/ Inr 07/05/2016 Other Rendering Inr 1.9 Protime W/ Inr 06/29/2016 Substation Operator Automatic In House Prothrombin Time 13.2 Inr 1.1 Protime W/ Inr 06/22/2016 Substation Operator Automatic In House Prothrombin Time 18.1 Inr 1.5 Protime W/ Inr 06/17/2016 Substation Operator Automatic In House Prothrombin Time 18.0 Inr 1.5 Protime W/ Inr 06/15/2016 Substation Operator Automatic In House Prothrombin Time 11.0 Inr 0.9 Protime W/ Inr 06/07/2016 Other Rendering Inr 3.2 Protime W/ Inr 06/02/2016 Other Rendering Inr 4.3 Protime W/ Inr 05/31/2016 Other Rendering Inr 8.0 Inr/Protime 05/19/2016 [facility] Inr 1.80 High 0.89-1.[address] [place] [address] [phone] Protime W/ Inr 05/12/2016 Substation Operator Automatic In House Prothrombin Time 19.6 Inr 1.6 Inr/Protime 04/27/2016 [facility] Inr 3.56 High 0.89-1.[address] [place] [address] [phone] Laboratory 04/27/2016 [facility] Hepatitis C Nonreactive N Nonreactive test finding [address] [place] [address] [phone] Urine 04/27/2016 [facility] Urine 106.40 mg/dL N Microalbumin [address] [place] [address] [phone] Ur Microalbumin (mg/L) 58.8 mg/L N Urine Microalbumin/Creatinine 55.2 ug/mg High <31 Protime W/ Inr 04/25/2016 Substation Operator Automatic In House Prothrombin Time 72.2 Inr 5.9 Laboratory test 04/14/2016 [employer]station [employer] Automatic In House Hemoglobin A1c 6.8 5-7 finding Inr/Protime 04/14/2016 [facility] Inr 1.34 High 0.89-1.[address] [place] [address] [phone] Protime W/ Inr 04/07/2016 Other Rendering Inr 1.56 Inr/Protime 04/07/2016 [facility] Inr 1.56 High 0.89-1.[address] [place] [address] [phone] Inr/Protime 03/30/2016 [facility] Inr 0.95 N 0.89-1.[address] [place] [address] [phone] Inr/Protime 03/16/2016 [facility] Inr 1.74 High 0.89-1.[address] [place] [address] [phone] Inr/Protime 03/10/2016 [facility] Inr 0.94 N 0.89-1.[address] [place] [address] [phone] Inr/Protime 02/23/2016 [facility] Inr 3.50 High 0.89-1.11 [address] [place] [address] [phone] Protime W/ Inr 02/02/2016 [facility] Inr 2.58 High 0.89-1.[address] [place] [address] [phone] Comp Metabolic 02/02/2016 [facility] Sodium 137 mmol/L N 133- 145 Panel [address] [place] [address] [phone] Potassium 4.3 mmol/L N 3.5-5.0 Chloride 107 mmol/L N 101-111 Co2 Carbon Dioxide 25 mmol/L N 22-32 Anion Gap 5 mmol/L N 2-11 Glucose 101 mg/dL High 70-100 Blood Urea Nitrogen 12 mg/dL N 6-24 Creatinine 1.23 mg/dL High 0.51-0.95 BUN/Creatinine Ratio 9.8 N 8-20 Calcium 9.9 mg/dL N 8.6-10.3 Total Protein 6.9 g/dL N 6.4-8.9 Albumin 4.0 g/dL N 3.2-5.2 Globulin 2.9 g/dL N 2-4 Albumin/Globulin Ratio 1.4 N 1-3 Total Bilirubin 0.50 mg/dL N 0.2-1.0 Alkaline Phosphatase 78 U/L N 34-104 Alt 6 U/L Low 7-52 Ast 9 U/L Low 13-39 Egfr Non- 44.0 N >60 Egfr 56.5 N >60 19 Lipid Profile 02/02/2016 [facility] Triglycerides 160 mg/dL N 20 (Trig/Chol/HDL) [address] [place] [address] [phone] Cholesterol 143 mg/dL N 21 HDL Cholesterol 33.2 mg/dL N 22 LDL Cholesterol 78 mg/dL N 23 Protime W/ Inr 01/20/2016 [employer]station [employer] Automatic In House Prothrombin Time 25.1 Inr 2.1 Protime W/ Inr 01/05/2016 Substation Operator Automatic In House Prothrombin Time 13.5 Inr 1.1 Protime W/ Inr 12/24/2015 Substation Operator Automatic In House Prothrombin Time 20.9 Inr 1.7 Protime W/ Inr 12/11/2015 Substation Operator Automatic In House Prothrombin Time 21.0 Inr 1.8 Comp Metabolic Panel 12/11/2015 [facility] Sodium 142 mmol/L N 133-145 24 [address] [place] [address] [phone] Potassium 4.1 mmol/L N 3.5-5.0 Chloride 110 mmol/L N 101-111 Co2 Carbon Dioxide 24 mmol/L N 22-32 Anion Gap 8 mmol/L N 2-11 Glucose 125 mg/dL High 70-100 Blood Urea Nitrogen 18 mg/dL N 6-24 Creatinine 1.31 mg/dL High 0.51-0.95 BUN/Creatinine Ratio 13.7 N 8-20 Calcium 10.2 mg/dL N 8.6-10.3 Total Protein 7.0 g/dL N 6.4-8.9 Albumin 4.2 g/dL N 3.2-5.2 Globulin 2.8 g/dL N 2-4 Albumin/Globulin Ratio 1.5 N 1-3 Total Bilirubin 0.20 mg/dL N 0.2-1.0 Alkaline Phosphatase 80 U/L N 34-104 Alt 12 U/L N 7-52 Ast 13 U/L N 13-39 Egfr Non- 40.9 N >60 Egfr 52.6 N >60 25 Lipid Profile 12/11/2015 [facility] Triglycerides 187 mg/dL N 26 (Trig/Chol/HDL) [address] [place] [address] [phone] Cholesterol 283 mg/dL N 27 HDL Cholesterol 37.7 mg/dL N 28 LDL Cholesterol 208 mg/dL N 29 Protime W/ Inr 12/04/2015 [employer]station [employer] In House Prothrombin Time 11.6 Inr 1.0 Protime W/ Inr 11/27/2015 Substation [employer] Automatic In House Prothrombin Time 11.3 Inr .9 Protime W/ Inr 11/20/2015 Substation Operator Automatic In House Prothrombin Time 16.7 Inr 1.4 Protime W/ Inr 11/10/2015 Substation Operator Automatic In House Prothrombin Time 32.3 Inr 2.7 Protime W/ Inr 2015 Substation Operator Automatic In House Prothrombin Time 15.5 Inr 1.3 Protime W/ Inr 10/28/2015 Substation Operator Automatic In House Prothrombin Time 11.8 Inr 1.0 Protime W/ Inr 10/19/2015 Substation Operator Automatic In House Prothrombin Time 12.9 Inr 1.1 Protime W/ Inr 10/02/2015 Substation Operator Automatic In House Prothrombin Time 25.6 Inr 2.1 Protime W/ Inr 09/24/2015 Substation Operator Automatic In House Prothrombin Time 12.7 Inr 1.1 Protime W/ Inr 09/08/2015 Substation Operator Automatic In House Prothrombin Time 28.4 Inr 2.4 Protime W/ Inr 08/28/2015 Substation Operator Automatic In House Prothrombin Time 24.3 Inr 2.0 Protime W/ Inr 08/19/2015 Substation Operator Automatic In House Prothrombin Time 13.6 Inr 1.1 Protime W/ Inr 08/14/2015 Substation Operator Automatic In House Prothrombin Time 13.4 Inr 1.1 Protime W/ Inr 08/07/2015 Substation Operator Automatic In House Prothrombin Time 23.7 Inr 2.0 Protime W/ Inr 08/03/2015 Substation Operator Automatic In House Prothrombin Time 39.4 Inr 3.3 Protime W/ Inr 07/31/2015 Substation [employer] In House Prothrombin Time 51.1 Inr 4.3 Protime W/ Inr 07/23/2015 Substation Operator Automatic In House Prothrombin Time 14.8 Inr 1.2 Protime W/ Inr 07/15/2015 Substation Operator Automatic In House Prothrombin Time 12.5 Inr 1.0 Protime W/ Inr 06/30/2015 Substation Operator Automatic In House Prothrombin Time 23.1 Inr 1.9 Protime W/ Inr 06/23/2015 [employer]station [employer] In House Prothrombin Time 31.1 Inr 2.6 Protime W/ Inr 06/16/2015 Substation [employer] Automatic In House Prothrombin Time 20.5 Inr 1.7 Protime W/ Inr 06/11/2015 Substation Operator Automatic In House Prothrombin Time 16.6 Inr 1.4 Protime W/ Inr 06/05/2015 Substation Operator Automatic In House Prothrombin Time 42.1 Inr 3.5 Protime W/ Inr 06/01/2015 Substation [employer] Automatic In House Prothrombin Time 39.7 Inr 3.3 Protime W/ Inr 05/28/2015 [employer]station [employer] In House Prothrombin Time 29.4 Inr 2.5 Protime W/ Inr 05/25/2015 Substation Operator Automatic In House Prothrombin Time 96.0 Inr 8.0 Protime W/ Inr 05/15/2015 [facility] Prothrombin Time 48.4 [phone] Inr 4.0 Protime W/ Inr 05/12/2015 Substation Operator Automatic In House Prothrombin Time greater than 960 Inr greater than 8.0 Protime W/ Inr 05/06/2015 Substation Operator Automatic In House Prothrombin Time 11.6 Inr 1.0 Laboratory test 01/27/2014 [facility] Inr 3.66 High 0.85-1.[address] [place] [address] [phone] Laboratory test 12/25/2013 [facility] Inr 2.57 High 0.85-1.[address] [place] [address] [phone] Laboratory test 12/06/2013 [facility] Inr 0.89 N 0.85-1.[address] [place] [address] [phone] Laboratory test 10/28/2013 [facility] Inr 0.88 N 0.85-1.[address] [place] [address] [phone] Laboratory test 10/04/2013 [facility] Inr 3.17 High 0.85-1.[address] [place] [address] [phone] Laboratory test 09/26/2013 [facility] Inr 1.02 N 0.85-1.[address] [place] [address] [phone] Laboratory test 07/13/2013 [facility] Inr 1.33 High 0.85-1.[address] [place] [address] [phone] Laboratory test 06/21/2013 [facility] Inr 1.15 High 0.85-1.[address] [place] [address] [phone] Basic Metabolic 05/22/2013 [facility] Sodium 138 mmol/L N 133- 145 [address] [place] [address] [phone] Potassium 4.4 mmol/L N 3.7-5.6 Chloride 108 mmol/L N 101-111 Co2 Carbon Dioxide 26 mmol/L N 22-32 Anion Gap 4 mmol/L N 2-11 Glucose 120 mg/dL High 70-100 Blood Urea Nitrogen 18 mg/dL N 6-24 Creatinine 1.18 mg/dL High 0.51-0.95 BUN/Creatinine Ratio 15.3 N 8-20 Calcium 10.0 mg/dL N 8.6-10.3 Egfr Non- 46.6 N >60 Egfr 59.9 N >60 31 Lipid Profile 05/22/2013 [facility] Triglycerides 178 mg/dL N 32 (Trig/Chol/HDL) [place] [address] [phone] Cholesterol 153 mg/dL N 33 HDL Cholesterol 41.8 mg/dL N 34 LDL Cholesterol 76 mg/dL N 35 Laboratory test 05/22/2013 [facility] Hemoglobin A1c 6.8 % High Less than 36 finding [facility] [address] [place] [address] [phone] Laboratory test 05/22/2013 [facility] Inr 1.46 High 0.85-1.06 [place] [address] [phone] Laboratory test 05/10/2013 [facility] Inr 1.01 N 0.85-1.06 [place] [address] [phone] Laboratory test 04/22/2013 [facility] Inr 2.07 High 0.85-1.06 [place] [address] [phone] Laboratory test 04/09/2013 [facility] Inr 0.91 0.85-1.06 [place] [address] [phone] Laboratory test 04/02/2013 [facility] Inr 1.12 High 0.85-1.06 [place] [address] [phone] Laboratory test 03/29/2013 [facility] Inr 5.47 High 0.85-1.06 [place] [address] [phone] Laboratory test 12/14/2012 [facility] Inr 2.02 High 0.87-0.97 [place] [address] [phone] Laboratory test 11/14/2012 [facility] Inr 2.00 High 0.87-0.97 finding [facility] [place] [address] [phone] 1 Standard intensity warfarin therapeutic range: 2.0-3.0 High intensity warfarin therapeutic range: 2.5-3.5 2 Because ethnic data is not always readily available, this report includes an eGFR for both -Americans and non- Americans. The National Kidney Disease Education Program (NKDEP) does not endorse the use of the MDRD equation for patients that are not between the ages of 18 and 70, are , have extremes of body size, muscle mass, or nutritional status, or are non- or non-. According to the National Kidney Foundation, irrespective of diagnosis, the stage of the disease is based on the level of kidney function: Stage Description GFR(mL/min/1.73 m(2)) 1 Kidney damage with normal or decreased GFR 90 2 Kidney damage with mild decrease in GFR 60-89 3 Moderate decrease in GFR 30-59 4 Severe decrease in GFR 15-29 5 Kidney failure <15 (or dialysis) 3 Rehabilitation Teacher: [id number] 4 Therapeutic target for the treatment of diabetes mellitus patients is <7% HBA1C, and in selective patients <6.0%. Please refer to [place] [employer] diabetic care guidelines for further information. 5 SEE RESULT BELOW Name: IRMA PAPPAS : [address]: Jesús Ge MD Acct: [id number] Unit: [id number] AGE: 67 Location: LAB Re05/03/18 SEX: F Status: REG REF SPEC: [id number] AUGUSTIN: 05/03/18-[address] [facility] [address]: Jesús Ge MD REQ: [id number] RECD: 05/03/18 STATUS: ANUM JIMENEZ DR: Kyle Tsang MD _ SOURCE: NASAL SPDESC: ORDERED: Flu A B Request Procedure Result Reported Site Rapid Influenza A B Request Final 05/03/181642 ML Specimen received for Influenza A/B Molecular testing * ML - Main Lab . END OF REPORT DEPARTMENT OF PATHOLOGY, [address] [place] [address] Luisito Miller M.D. Director [facility] # [id number] ADDITIONAL INFORMATION This test was developed and its performance characteristics determined by [facility] in a manner consistent with CLIA requirements. This test has not been cleared or approved by the U.S. Food and Drug Administration. Test Performed by: [facility] [address] [place] [address] 7 ADDITIONAL INFORMATION This test was developed and its performance characteristics determined by [facility] in a manner consistent with CLIA requirements. This test has not been cleared or approved by the U.S. Food and Drug Administration. Test Performed by: [facility] [address] [place] [address] 8 Because ethnic data is not always readily available, this report includes an eGFR for both -Americans and non- Americans. The National Kidney Disease Education Program (NKDEP) does not endorse the use of the MDRD equation for patients that are not between the ages of 18 and 70, are , have extremes of body size, muscle mass, or nutritional status, or are non- or non-. According to the National Kidney Foundation, irrespective of diagnosis, the stage of the disease is based on the level of kidney function: Stage Description GFR(mL/min/1.73 m(2)) 1 Kidney damage with normal or decreased GFR 90 2 Kidney damage with mild decrease in GFR 60-89 3 Moderate decrease in GFR 30-59 4 Severe decrease in GFR 15-29 5 Kidney failure <15 (or dialysis) 9 Therapeutic target for the treatment of diabetes mellitus patients is <7% HBA1C, and in selective patients <6.0%. Please refer to [place] [employer] diabetic care guidelines for further information. 10 Because ethnic data is not always readily available, this report includes an eGFR for both -Americans and non- Americans. The National Kidney Disease Education Program (NKDEP) does not endorse the use of the MDRD equation for patients that are not between the ages of 18 and 70, are , have extremes of body size, muscle mass, or nutritional status, or are non- or non-. According to the National Kidney Foundation, irrespective of diagnosis, the stage of the disease is based on the level of kidney function: Stage Description GFR(mL/min/1.73 m(2)) 1 Kidney damage with normal or decreased GFR 90 2 Kidney damage with mild decrease in GFR 60-89 3 Moderate decrease in GFR 30-59 4 Severe decrease in GFR 15-29 5 Kidney failure <15 (or dialysis) 11 Desirable: <150 Borderline High: 150-199 High: 200-499 Very High: >500 12 Desirable: <200 Borderline High: 200-239 High: >239 13 Low: <40 Desirable: 40-60 High: >60 14 Desirable: <100 Near Optimal: 100-129 Borderline High: 130-159 High: 160-189 Very High: >189 15 Acute inflammation: >10.00 16 [place] Severe Sepsis and Septic Shock Management Bundle Measure requires all lactic acids initially measuring >2.0 mmol/L be repeated. 17 >100 to <200 pg/mL: likely compensated congestive heart failure (CHF) 200 to 400 pg/mL: likely moderate CHF >400 pg/mL: likely moderate to severe CHF 18 Because ethnic data is not always readily available, this report includes an eGFR for both -Americans and non- Americans. The National Kidney Disease Education Program (NKDEP) does not endorse the use of the MDRD equation for patients that are not between the ages of 18 and 70, are , have extremes of body size, muscle mass, or nutritional status, or are non- or non-. According to the National Kidney Foundation, irrespective of diagnosis, the stage of the disease is based on the level of kidney function: Stage Description GFR(mL/min/1.73 m(2)) 1 Kidney damage with normal or decreased GFR 90 2 Kidney damage with mild decrease in GFR 60-89 3 Moderate decrease in GFR 30-59 4 Severe decrease in GFR 15-29 5 Kidney failure <15 (or dialysis) 19 Because ethnic data is not always readily available, this report includes an eGFR for both -Americans and non- Americans. The National Kidney Disease Education Program (NKDEP) does not endorse the use of the MDRD equation for patients that are not between the ages of 18 and 70, are , have extremes of body size, muscle mass, or nutritional status, or are non- or non-. According to the National Kidney Foundation, irrespective of diagnosis, the stage of the disease is based on the level of kidney function: Stage Description GFR(mL/min/1.73 m(2)) 1 Kidney damage with normal or decreased GFR 90 2 Kidney damage with mild decrease in GFR 60-89 3 Moderate decrease in GFR 30-59 4 Severe decrease in GFR 15-29 5 Kidney failure <15 (or dialysis) 20 Desirable <150 Borderline high 150-199 High 200-499 Very High >500 21 Desirable <200 Borderline high 200-239 High >239 22 Low <40 Desirable: 40-60 High: >60 23 Desirable: <100 mg/dL Near Optimal: 100-129 mg/dL Borderline High: 130-159 mg/dL High: 160-189 mg/dL Very High: >189 mg/dL 24 FASTING 25 Because ethnic data is not always readily available, this report includes an eGFR for both -Americans and non- Americans. The National Kidney Disease Education Program (NKDEP) does not endorse the use of the MDRD equation for patients that are not between the ages of 18 and 70, are , have extremes of body size, muscle mass, or nutritional status, or are non- or non-. According to the National Kidney Foundation, irrespective of diagnosis, the stage of the disease is based on the level of kidney function: Stage Description GFR(mL/min/1.73 m(2)) 1 Kidney damage with normal or decreased GFR 90 2 Kidney damage with mild decrease in GFR 60-89 3 Moderate decrease in GFR 30-59 4 Severe decrease in GFR 15-29 5 Kidney failure <15 (or dialysis) 26 Desirable <150 Borderline high 150-199 High 200-499 Very High >500 27 Desirable <200 Borderline high 200-239 High >239 28 Low <40 Desirable: 40-60 High: >60 29 Desirable: <100 mg/dL Near Optimal: 100-129 mg/dL Borderline High: 130-159 mg/dL High: 160-189 mg/dL Very High: >189 mg/dL 30 PT IS FASTING 31 Because ethnic data is not always readily available, this report includes an eGFR for both -Americans and non- Americans. The National Kidney Disease Education Program (NKDE) does not endorse the use of the MDRD equation for patients that are not between the ages of 18 and 70, are , have extremes of body size, muscle mass, or nutritional status, or are non- or non-. According to the National Kidney Foundation, irrespective of diagnosis, the stage of the disease is based on the level of kidney function: Stage Description GFR(mL/min/1.73 m(2)) 1 Kidney damage with normal or decreased GFR 90 2 Kidney damage with mild decrease in GFR 60-89 3 Moderate decrease in GFR 30-59 4 Severe decrease in GFR 15-29 5 Kidney failure <15 (or dialysis) 32 Desirable <150 Borderline high 150-199 High 200-499 Very High >500 33 Desirable <200 Borderline high 200-239 High >239 34 Low <40 Desirable: 40-60 High: >60 35 Desirable <100 Near Optimal 100-129 Borderline high 130-159 High 160-189 Very High >189 36 Therapeutic target for the treatment of diabetes Mellitus patients is <7% HBA1C, and in selective patients <6.0%.Please refer to [place] [employer] Diabetic care guidelines for further information. Procedures Date Code Description Status 08/02/2018 33783 Pulmonary Stress [facility] Measurement Heart Rate, Completed Oximetry 05/19/2016 [id number] Bone Mineral Density Test Completed 04/21/2015 [id number] Diabetic Retinal Eye Exam Completed 05/21/2014 [id number] Mammogram Completed 06/20/2013 [id number] Colonoscopy Completed 01/26/2011 [id number] Insert Non-Tunneled Venous Catether Completed Encounters Type Date Location Provider Dx Diagnosis Office Visit 08/09/2018 [facility] Internal Cindi Ng, I10 Essential ( primary) 2:40p Medicine - Suite DO hypertension R J44.9 Chronic obstructive pulmonary disease, unspecified F17.210 Nicotine dependence, cigarettes, uncomplicated R35.1 Nocturia Z12.11 Encounter for screening for malignant neoplasm of colon I48.2 Chronic atrial fibrillation G31.84 Mild cognitive impairment, so stated Office Visit 08/02/2018 2:45p Pulmonology And Sridhar Hein44.9 [facility] pulmonary disease, unspecified G47.30 Sleep apnea, unspecified Office Visit 06/05/2018 3:20p DO Not Use Care Sridhar Morales44.9 [facility], unspecified F17.210 Nicotine dependence, cigarettes, uncomplicated E11.9 Type 2 diabetes mellitus without complications F41.9 Anxiety disorder, unspecified I10 Essential (primary) hypertension Office Visit 05/29/2018 3:20p DO Not Use Care Jesús eG J44.9 [facility] obstructive [facility] pulmonary disease, unspecified R06.02 Shortness of breath E11.9 Type 2 diabetes mellitus without complications R05 Cough Office Visit 05/03/2018 2:40p DO Not Use Care Jesús Ge F17.210 Nicotine Adenike ROGEL dependence, [facility] cigarettes, uncomplicated E11.9 Type 2 diabetes mellitus without complications F41.9 Anxiety disorder, unspecified G43.109 Migraine with aura, not intractable, w/o status migrainosus J45.909 Unspecified asthma, uncomplicated I10 Essential (primary) hypertension R53.83 Other fatigue Office Visit 01/18/2018 1:00p DO Not Use Care Jesús Ge MD E83.52 Hypercalcemia [facility] E11.9 Type 2 diabetes mellitus without complications F41.9 Anxiety disorder, unspecified G43.109 Migraine with aura, not intractable, w/o status migrainosus F17.210 Nicotine dependence, cigarettes, uncomplicated M54.5 Low back pain E78.2 Mixed hyperlipidemia J45.909 Unspecified asthma, uncomplicated K21.9 Gastro-esophageal reflux disease without esophagitis I10 Essential (primary) hypertension J01.90 Acute sinusitis, unspecified I63.9 Cerebral infarction, unspecified Office Visit 11/30/2017 2:30p DO Not Use Care Jesús Ge MD E83.52 Hypercalcemia [facility] E11.9 Type 2 diabetes mellitus without complications F41.9 Anxiety disorder, unspecified G43.109 Migraine with aura, not intractable, w/o status migrainosus F17.210 Nicotine dependence, cigarettes, uncomplicated M54.5 Low back pain E78.2 Mixed hyperlipidemia J45.909 Unspecified asthma, uncomplicated K21.9 Gastro-esophageal reflux disease without esophagitis J01.90 Acute sinusitis, unspecified Office Visit 11/16/2017 1:30p DO Not Use Care Jesús Ge, Valentín Essential ( primary) Adenike ROGEL hypertension [facility] E11.9 Type 2 diabetes mellitus without complications F17.210 Nicotine dependence, cigarettes, uncomplicated I63.9 Cerebral infarction, unspecified G43.109 Migraine with aura, not intractable, w/o status migrainosus F41.9 Anxiety disorder, unspecified E78.2 Mixed hyperlipidemia N32.81 Overactive bladder M54.5 Low back pain J45.909 Unspecified asthma, uncomplicated J01.90 Acute sinusitis, unspecified Office Visit 07/25/2017 3:00p [facility] Internal Kyle E11.9 Type 2 diabetes Melyssa Tsang M.D. mellitus without Suite R complications J45.909 Unspecified asthma, uncomplicated G43.109 Migraine with aura, not intractable, w/o status migrainosus E78.2 Mixed hyperlipidemia Office Visit 06/27/2017 11:20a [facility] Internal Kyle M25.532 Pain in left Melyssa Tsang M.D. wrist Suite R Office Visit 05/25/2017 1:40p [facility] Internal Sara S81.011A Laceration [facility] Riki Molina, FREIGHT RECEIVER without foreign Suite R body, right knee, init encntr S41.112A Laceration w/o foreign body of left upper arm, init encntr E11.9 Type 2 diabetes mellitus without complications S40.812D Abrasion of left upper arm, subsequent encounter S80.211D Abrasion, right knee, subsequent encounter Office Visit 04/24/2017 1:40p Amelie Wright E11.9 Type 2 diabetes Melyssa Tsang M.D. mellitus without Suite R complications I10 Essential (primary) hypertension J45.909 Unspecified asthma, uncomplicated I63.9 Cerebral infarction, unspecified E78.2 Mixed hyperlipidemia Z12.31 Encntr screen mammogram for malignant neoplasm of breast J01.90 Acute sinusitis, unspecified Office Visit 01/24/2017 11:40a [facility] Opal Wright E11.9 Type 2 diabetes Melyssa Tsang M.D. mellitus without Suite R complications I10 Essential (primary) hypertension J45.909 Unspecified asthma, uncomplicated S80.869A Insect bite (nonvenomous), unsp lower leg, init encntr F17.210 Nicotine dependence, cigarettes, uncomplicated Z12.11 Encounter for screening for malignant neoplasm of colon Office Visit 10/28/2016 1:40p [facility] Opal Tsang, Z00.00 Encntr for Medicine Riki Maldonado general adult Suite R medical exam w/o abnormal findings H66.91 Otitis media, unspecified, right ear N32.81 Overactive bladder F17.210 Nicotine dependence, cigarettes, uncomplicated Office Visit 09/16/2016 [facility] Internal Kyle Z79.01 prison (current) 1:00p Melyssa Tsang M.D. 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 unsp spider Suite R venom, accidental, init J20.9 Acute bronchitis, unspecified Office Visit 04/14/2016 2:40p [facility] Internal Kyle E11.9 Type 2 diabetes Melyssa Tsang M.D. 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 J45.20 Mild intermittent asthma, uncomplicated R56.9 Unspecified convulsions Office Visit 06/12/2015 3:00p [facility] Internal Jeff Babcock, I10 Essential ( primary) Medicine - Suite [employer] hypertension R I69.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 Office Visit 03/06/2012 Orthopedic Christos Barr, 719.47 Pain Joint Ankle & 3:00p [facility] Foot C.M.A. Office Visit 12/23/2011 Yariel Montenegro 438.89 Cerebrovascular 11:30a Neurologic Aimee Betancourt Late Effect [facility] Erica Other 780.39 Convulsions Other Plan of Treatment 08/09/2018 - Cindi Ng, DOI10 Essential (primary) hypertensionComments: START taking the losartanand come back in a month for BP follow upJ44.9 Chronic obstructive pulmonary disease, onlskfaukljE29.210 Nicotine dependence, cigarettes, ylvlumhxabedzN32.1 UybsfmtsY15.11 Encounter for screening for malignant neoplasm of cskfgO75.2 Chronic atrial fibrillationFollow up:BRING EVERY BOTTLE OF PILLS WITH YOU IN ONE MONTH Once we see all of your pill bottles , we may be able to switch you to a blood thinner that does not require INR lokftlF55.84 Mild cognitive impairment, so stated
--- OUTSIDE RECORDS SUMMARY | 2018-08-14 16:03 | XMS REPORT | Continuity of Care Document ---
:1950 External Reference #:[id number] Author Name Felicita Puente Care Team Providers Name Role Phone Jesús Ge MD Primary Care Physician Unavailable Payers Date Identification Numbers Payment Provider Subscriber Effective: 2000 Policy Number: [id number] Medicare Debbieanne Pappas PayID: [id number] [address] [place] [address] Effective: 2015 Policy Number: [facility] [employer] Debbieanne Pappas [id number] Expires: 2015 PayID: [id number] [address] [address] [place] [address] Policy Number: [id number] Medicaid Debbieanne Pappas PayID: [id number] [address] [place] [address] Problems Active Problems Provider Date Essential hypertension [...] smoker, smokes every day Smoking Status Reviewed: 08/02/18 Patient is a current smoker, smokes every day Exercise Type/Frequency Does not exercise Allergies, Adverse Reactions, Alerts Active Allergies Reaction Severity Comments Date Mushrooms 01/09/2014 Bee Stings 01/09/2014 Penicillin 01/09/2014 Morphine 01/09/2014 Demerol 01/09/2014 Iodine if injected 01/18/2018 Medications Active Medications SIG Qnty Indications Ordering Date Provider Spiriva Respimat 1 inhalation daily. 4gm J44.9 Jesús Ge MD 05/29/2018 2.5mcg/Act Aerosol Pioglitazone HCL take 1 tab daily 30tabs E11.9 Cindi Ng, 11/30/2017 DO 45mg Tablets Omeprazole take 1 tab daily 30caps K21.9 Jesús Ge MD 11/30/[address] Atorvastatin 1 tab daily 30tabs E78.2 Jesús Ge MD 11/30/2017 Calcium 40mg Tablets [facility] Nicotine use daily for 4 28units F17.210 Jesús Ge MD 11/16/2017 Transdermal weeks. System/Step 3 7mg/24HR Patches 24HR Blood Pressure Kit Check twice a day 1units I10 Jesús Ge MD 11/16/2017 and record in a log Kit book Amlodipine Besylate take 1 tab each day. 30tabs I10 Cindi Ng, 2017 DO 10mg Tablets Vesicare take 1 tab daily 30tabs Jesús Ge MD 11/16/2017 10mg Tablets Topamax 1 tab by mouth at 90tabs G40.909 Doss 07/25/2017 100mg bedtime Erica Tsang Tablets Metformin HCL taking once a day--1 60tabs E11.9 Doss 07/25/2017 500mg by mouth twice a day Erica Tsang Tablets Sumatriptan use at onset of head 14tabs G43.109 Cindi Ng, 07/25/2017 Succinate ache,may repeat DO 100mg after 2h as needed Tablets Losartan Potassium 1 by mouth once a 30tabs E11.9 Doss 09/16/2016 day Erica Tsang 25mg Tablets Onetouch Ultrasoft test blood 2-3 a day 100units E11.9 Doss 04/14/2016 Lancets or as needed dx Erica Tsang [facility] e11.9 Onetouch Verio test blood gulcose 100units E11.9 Jesús Ge MD 04/14/2016 twice weekly and as Strips needed for diabetes mellitus Onetouch Verio use as directed 1units E11.9 Doss 04/14/2016 Erica Tsang w/Device Kit Depend Pant Extra use 4x a day 120units Doss 12/24/2015 Large Erica Tsang [facility] Blood Pressure use as directed to 1unangélica Doss 12/24/2015 Monitor check blood Erica Tsang Automatic/Arm pressure. dx i10 Device Clotrimazole apply twice daily 45gm B37.9 Jesús Ge MD 12/22/2015 1% Cream Epipen 2[facility]2015 in thigh; may repeat Erica Tsang 0.3mg/0.3ML if needed Solution Auto-Inject [facility]air Diskus inhale [facility] puff [facility] 08/[facility]2015 mouth twice a day as Erica Tsang 250-50mcg/Dose needed Aerosol Warfarin Sodium 2 mg everyday 120tabs Jesús Ge MD 06/01/2015 1mg (Managed by Dr. Roberta Ge) Tizanidine HCL every 8 hours as 30tabs Cindi Ng, 2mg needed for muscle DO Tablets spasms Proair HFA 2 puffs every 6 25.5gm Doss hours as needed sob Erica Tsang 108(90Base) mcg/Act Aerosol Diazepam 1/2-1 tab every day 30tabs Jesús Ge MD 5mg as needed Tablets Albuterol Sulfate 1 vial via nebulizer 90ml Doss 4 times daily as Erica Tsang (2.5mg/3ML) 0.083% needed Nebulizer Nexium 1 capsule daily as 30caps Doss 20mg needed. Erica Tsang Capsules DR Metoprolol 1 tab daily 30tabs Doss Succinate ER Erica Tsang 50mg Tablets ER 24HR History Medications Prednisone take 2 tab daily [...] 04/22/2018 Tablets tab for next 4 days. Azithromycin Take 2 tabs on 6tabs J01.90 Jesús Ge MD 11/30/2017 - 250mg first day then 1 01/18/2018 Tablets tab for next [address] days[address] [facility] Nicotine use 1 patch 28units F17.210 Jesús Ge MD 11/30/2017 - Transdermal daily. 08/01/2018 System/Step 3 7mg/24HR Patches 24HR Nicotrol use every 2 hours 168units F17.210 Jesús Ge MD 11/16/2017 - 10mg Inhaler as needed for 05/03/2018 nicotine cravings. Clindamycin HCL one capsule by 1caps Unknown 05/13/2017 - 150mg mouth three times 05/20/2017 Capsules a day for 7 days Azithromycin 2 tab today and 6tabs J01.90 Doss 04/24/2017 - 250mg then 1tab daily Pachika, 05/25/2017 Tablets M.D. Nicotine 1 apply patch 30units F17.210 Doss 01/24/2017 - 14mg/24HR topically every Pachika, 07/24/2017 Patches 24HR 24 hours. M.D. Levofloxacin once daily 10tabs H66.91 Doss 10/28/2016 - 500mg Pachika, 05/25/2017 Tablets M.D. Nicotine Polacrilex 4 times a day as 120units F17.210 Doss 09/16/2016 - needed Pachikara, 07/24/2017 2mg Gum M.D. Vitamin K 1mg by mouth x 1 1units Doss 05/31/2016 - Pachikara, 06/01/2016 M.D. Vesicare once daily 30tabs Doss 05/06/2016 - 10mg Tablets Pachika, 11/16/2017 M.DPreet Funez 1 caps by mouth 30caps Doss 08/31/2015 - 100mg three times a day Pachika, 08/01/2018 Capsules as needed M.D. 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 Oxybutynin Chloride 1 po daily 30tabs Jeff Babcock, - ER TECHNICAL TESTING ENGINEER 06/24/2015 10mg Tablets ER 24HR Crestor 1 tab by mouth at 30tabs Doss - 40mg Tablets at bedtime Pachika, 11/16/2017 M.D. Pioglitazone HCL Unknown - 45mg 05/05/2015 Tablets Fentanyl Apply 1 [place] Unknown - 50mcg/HR Every 48 Hours as 07/18/2017 Patches 72HR Directed Oxymorphone HCL 1 q6h prn Unknown - 5mg 07/18/2017 Tablets Warfarin Sodium Unknown - 3mg 05/04/2015 Tablets Oxybutynin Chloride 1 po daily 30tabs Jeff Babcock, - ER TECHNICAL TESTING ENGINEER 06/24/2015 15mg Tablets ER 24HR Advair Diskus Unknown - 08/31/2015 100-50mcg/Dose Aerosol Trazodone HCL 1 tab at bedtime 30tabs Doss - 100mg prn Pachikara, 07/24/2017 Tablets M.D. Montelukast Sodium Unknown - 10/28/2016 10mg Tablets Nasonex Unknown - 50mcg/Act 08/01/2018 Suspension Warfarin Sodium 1 by mouth every 90tabs Kyle - 4mg night or as Pachikara, 11/16/2017 Tablets directed M.D. Ranitidine HCL 1 tab by mouth 90tabs King Sanchez - 150mg daily [place], 11/30/2017 Roberta Maldonado,FACP Immunizations CPT Code Status Date Vaccine Lot # [id number] Given 04/14/2016 Pneumonia Vaccine [id number] Vital Signs Date Vital Result Comment 08/02/2018 2:52pm Height 65 inches 5'5" Weight [...] Date Facility Test Result H/L Range Note Laboratory test 05/29/2018 [facility] B-Type 39 pg/mL <=[address] [place] [address] Peptide BNP [phone] CBC Auto Diff 05/29/2018 [facility] White Blood 9.8 10^3/uL N 3.5-10.[address] [place] [address] [phone] Red Blood Count 4.79 10^6/uL N 3.70-4.87 [...] Blood Cells % 0.1 Laboratory test 05/29/2018 [facility] C Reactive 44.84 mg/L High <8.[address] Protein [place], [place] [id number] [phone] Basic Metabolic 05/29/2018 [facility] Sodium 141 mmol/L N 135- [address] [place] [address] [phone] Potassium 4.4 mmol/L N 3.5-5.0 Chloride 108 mmol/L N 101-111 Co2 Carbon Dioxide 24 mmol/L N 22-32 Anion Gap 9 mmol/L N 2-11 Glucose 136 mg/dL High 70-100 Blood Urea Nitrogen 13 mg/dL N 6-24 Creatinine 1.06 mg/dL High 0.51-0.95 BUN/Creatinine Ratio 12.3 N 8-20 Calcium 10.1 mg/dL N 8.6-10.3 Egfr Non- 51.9 >60 Egfr 62.8 >60 1 Rapid Influenza 05/03/2018 [facility] Influenza A NEGATIVE Negative 2 A & B Molecular [address] [place] [address] [phone] Influenza B Molecular NEGATIVE Negative Laboratory test 05/03/2018 [facility] Hemoglobin A1c 7.3 % High 4.0-5.[address] (Glyco HGB) [place] [address] [phone] Laboratory test 05/03/2018 [facility] Rapid SEE RESULT [address] [place] [place] [address] Antigen [phone] Protime W/ Inr 02/01/2018 Other Rendering Inr 2.3 Laboratory test 01/18/2018 [facility] Vitamin D 12.1 ng/mL Low 20-[address] Total 25(Oh) [place], [place] [id number] [phone] Pthi 01/18/2018 [facility] Calcium (PTH 10.6 mg/dL High 8.6- 10.3 DRIVE Intact) [place], [place] [address] [phone] PTH Intact 12.5 pmol/L High 1.3-9.3 Laboratory test 01/18/2018 [facility] TSH (Thyroid 4.34 N 0.34 -5.[address] Stim Horm) mcIU/[place] [address] [phone] 1,25 Dihydroxy 01/18/2018 [facility] Calcitriol 42 pg/mL 18- 78 [address] [place] [address] [phone] Laboratory test 01/18/2018 [facility] PTH Related 0.5 pmol/L <2.[address] [place] [address] [phone] Basic Metabolic 01/18/2018 [facility] Sodium 140 mmol/L N 135- [address] [place] [address] [phone] Potassium 4.4 mmol/L N 3.5-5.0 Chloride 110 mmol/L N 101-111 Co2 Carbon Dioxide 23 mmol/L N 22-32 Anion Gap 7 mmol/L N 2-11 Glucose 145 mg/dL High 70-100 Blood Urea Nitrogen 22 mg/dL N 6-24 Creatinine 1.18 mg/dL High 0.51-0.95 BUN/Creatinine Ratio 18.6 N 8-20 Calcium 10.7 mg/dL High 8.6-10.3 Egfr Non- 45.8 >60 Egfr 55.5 >60 7 Protime W/ Inr 01/15/2018 Other Rendering Inr 2.7 Protime W/ Inr 12/15/2017 Other Rendering Inr 2.3 Protime W/ Inr 12/04/2017 Other Rendering Inr 2.5 Protime W/ Inr 12/04/2017 Other Rendering Inr 2.5 Protime W/ Inr 11/24/2017 Other Rendering Inr 3.0 Laboratory test 11/16/2017 [facility] Hemoglobin A1c 8.1 % High 4.0-5.[address] (Glyco HGB) [place] [address] [phone] Urine Microalbumin 11/16/2017 [facility] Ur Microalbumin 71.[address] (mg/L) [place] [address] [phone] Urine Creatinine 215.24 mg/dL Urine Microalbumin/Creatinine 33.4 High <31 Basic Metabolic Panel 11/16/2017 [facility] Sodium 140 mmol/L N 135-[address] [place] [address] [phone] Potassium 4.4 mmol/L N 3.5-5.0 Chloride 109 mmol/L N 101-111 Co2 Carbon Dioxide 24 mmol/L N 22-32 Anion Gap 7 mmol/L N 2-11 Glucose 201 mg/dL High 70-100 Blood Urea Nitrogen 16 mg/dL N 6-24 Creatinine 1.04 mg/dL High 0.51-0.95 BUN/Creatinine Ratio 15.4 N 8-20 Calcium 11.3 mg/dL High 8.6-10.3 Egfr Non- 53.0 >60 Egfr 64.2 >60 9 CBC No Diff 11/16/2017 [facility] White Blood 13.4 10^3/uL High 3.5-10.[address] [place] [address] [phone] Red Blood Count 4.39 10^6/uL N 4.00-5.40 Hemoglobin 13.6 g/dL N 12.0-16.0 Hematocrit 41 % N 35-47 Mean Corpuscular Volume 93 fL N 80-97 Mean Corpuscular Hemoglobin 31 pg N 27-31 Mean Corpuscular HGB Conc 33 g/dL N 31-36 Red Cell Distribution Width 14 % N 10.5-15 Platelet Count 258 10^3/uL N 150-450 Mean Platelet Volume 8.3 um3 N 7.4-10.4 Lipid Profile 11/16/2017 [facility] Triglycerides 249 mg/dL 10 (Trig/Chol/HDL) [address] [place] [address] [phone] Cholesterol 189 mg/dL 11 HDL Cholesterol 48.2 mg/dL 12 LDL Cholesterol 91 mg/dL 13 Protime W/ Inr 11/10/2017 Other Rendering Inr [...] Other Rendering Inr 2.0 Laboratory test 07/25/2017 [facility] Hemoglobin A1c 7.6 High 5-7 [...] Other Rendering Inr 2.0 Laboratory test 05/25/2017 [facility] Hemoglobin A1c 6.7 5-7 finding Laboratory test 05/25/2017 [facility] Hemoglobin A1c 6.7 5-7 finding Protime W/ Inr 05/24/2017 Other Rendering Inr 2.2 Protime W/ Inr 05/17/2017 Other Rendering Inr 2.8 CBC Auto Diff 05/14/2017 [facility] White Blood Count 12.7 High 3.5-10. [address] 10^3/uL 8 [place] [address] [phone] Red Blood Count 4.71 10^6/uL N 4.0-5.4 [...] 0-2 Nucleated Red Blood Cells % 0.1 Comp Metabolic Panel 05/14/2017 [facility] Sodium 141 mmol/L N 133-[address] [place] [address] [phone] Potassium 3.7 mmol/L N 3.5-5.0 Chloride 109 [...] Egfr Non- 52.6 >60 Egfr 67.6 >60 14 Laboratory test 05/14/2017 [facility] C Reactive 7.53 mg/L High < 5.00 [address] [place] [address] [phone] Lactic Acid 1.0 mmol/L N 0.5-2.0 16 B-Type Natriuretic Peptide BNP 92 pg/mL 17 Protime W/ Inr 05/10/2017 Other Rendering Inr [...] Rendering Inr 2.7 Laboratory test finding 01/24/2017 [facility] Hemoglobin A1c 6.7 5-7 Protime [...] Rendering Inr 1.9 Protime W/ Inr 06/29/2016 [facility] Prothrombin Time 13.2 Inr 1.1 Protime W/ Inr 06/22/2016 [facility] Prothrombin Time 18.1 Inr 1.5 Protime W/ Inr 06/17/2016 [facility] Prothrombin Time 18.0 Inr 1.5 Protime W/ Inr 06/15/2016 [facility] Prothrombin Time 11.0 Inr 0.9 Protime W/ Inr 06/07/2016 Other Rendering Inr 3.2 Protime W/ Inr 06/02/2016 Other Rendering Inr 4.3 Protime W/ Inr 05/31/2016 Other Rendering Inr 8.0 Inr/Protime 05/19/2016 [facility] Inr 1.80 High 0.89-1.[address] [place] [address] [phone] Protime W/ Inr 05/12/2016 [facility] Prothrombin Time 19.6 Inr 1.6 Urine Microalbumin 04/27/2016 [facility] Urine Creatinine 106.40 mg/dL N Random [address] [place] [address] [phone] Ur Microalbumin (mg/L) 58.8 mg/L N Urine Microalbumin/Creatinine 55.2 ug/mg High <31 Inr/Protime 04/27/2016 [facility] Inr 3.56 High 0.89-1.11 [address] [place] [address] [phone] Laboratory 04/27/2016 [facility] Hepatitis C Nonreactive N Nonreactive test finding [address] [facility] [place] [address] [phone] Protime W/ 04/25/2016 [facility] Prothrombin 72.2 Inr Time Inr 5.9 Laboratory test 04/14/2016 [facility] Hemoglobin A1c 6.8 5-7 finding Inr/Protime 04/14/2016 [facility] Inr 1.34 High 0.89-1.11 [address] [place] [address] [phone] Protime W/ Inr 04/07/2016 Other Rendering Inr 1.56 Inr/Protime 04/07/2016 [facility] Inr 1.56 High 0.89-1.11 [address] [place] [address] [phone] Inr/Protime 03/30/2016 [facility] Inr 0.95 N 0.89-1.11 [address] [place] [address] [phone] Inr/Protime 03/16/2016 [facility] Inr 1.74 High 0.89-1.[address] [place] [phone] Inr/Protime 03/10/2016 [facility] Inr 0.94 N 0.89-1.11 [address] [place] [address] [phone] Inr/Protime 02/23/2016 [facility] Inr 3.50 High 0.89-1.11 [address] [place] [address] [phone] Protime W/ Inr 02/02/2016 [facility] Inr 2.58 High 0.89-1.11 [address] [place] [address] [phone] Comp Metabolic 02/02/2016 [facility] Sodium 137 mmol/L N 133- 145 Panel [address] [place] [address] [phone] Potassium 4.3 mmol/L N 3.5-5.0 Chloride 107 [...] 44.0 N >60 Egfr 56.5 N >60 18 Lipid Profile 02/02/2016 [facility] Triglycerides 160 mg/dL N 19 (Trig/Chol/HDL) [address] [place] [address] [phone] Cholesterol 143 mg/dL N 20 HDL Cholesterol 33.2 mg/dL N 21 LDL Cholesterol 78 mg/dL N 22 Protime W/ Inr 01/20/2016 [facility] Prothrombin Time 25.1 Inr 2.1 Protime W/ Inr 01/05/2016 [facility] Prothrombin Time 13.5 Inr 1.1 Protime W/ Inr 12/24/2015 [facility] Prothrombin Time 20.9 Inr 1.7 Protime W/ Inr 12/11/2015 [facility] Prothrombin Time 21.0 Inr 1.8 Comp Metabolic Panel 12/11/2015 [facility] Sodium 142 mmol/L N 133-145 23 [address] [place] [address] [phone] Potassium 4.1 mmol/L N 3.5-5.0 Chloride 110 [...] 40.9 N >60 Egfr 52.6 N >60 24 Lipid Profile 12/11/2015 [facility] Triglycerides 187 mg/dL N 25 (Trig/Chol/HDL) [address] [place] [address] [phone] Cholesterol 283 mg/dL N 26 HDL Cholesterol 37.7 mg/dL N 27 LDL Cholesterol 208 mg/dL N 28 Protime W/ Inr 12/04/2015 [facility] Prothrombin Time 11.6 Inr 1.0 Protime W/ Inr 11/27/2015 [facility] Prothrombin Time 11.3 Inr .9 Protime W/ Inr 11/20/2015 [facility] Prothrombin Time 16.7 Inr 1.4 Protime W/ Inr 11/10/2015 [facility] Prothrombin Time 32.3 Inr 2.7 Protime W/ Inr 2015 [facility] Prothrombin Time 15.5 Inr 1.3 Protime W/ Inr 10/28/2015 [facility] Prothrombin Time 11.8 Inr 1.0 Protime W/ Inr 10/19/2015 [facility] Prothrombin Time 12.9 Inr 1.1 Protime W/ Inr 10/02/2015 [facility] Prothrombin Time 25.6 Inr 2.1 Protime W/ Inr 09/24/2015 [facility] Prothrombin Time 12.7 Inr 1.1 Protime W/ Inr 09/08/2015 [facility] Prothrombin Time 28.4 Inr 2.4 Protime W/ Inr 08/28/2015 [facility] Prothrombin Time 24.3 Inr 2.0 Protime W/ Inr 08/19/2015 [facility] Prothrombin Time 13.6 Inr 1.1 Protime W/ Inr 08/14/2015 [facility] Prothrombin Time 13.4 Inr 1.1 Protime W/ Inr 08/07/2015 [facility] Prothrombin Time 23.7 Inr 2.0 Protime W/ Inr 08/03/2015 [facility] Prothrombin Time 39.4 Inr 3.3 Protime W/ Inr 07/31/2015 [facility] Prothrombin Time 51.1 Inr 4.3 Protime W/ Inr 07/23/2015 [facility] Prothrombin Time 14.8 Inr 1.2 Protime W/ Inr 07/15/2015 [facility] Prothrombin Time 12.5 Inr 1.0 Protime W/ Inr 06/30/2015 [facility] Prothrombin Time 23.1 Inr 1.9 Protime W/ Inr 06/23/2015 [facility] Prothrombin Time 31.1 Inr 2.6 Protime W/ Inr 06/16/2015 [facility] Prothrombin Time 20.5 Inr 1.7 Protime W/ Inr 06/11/2015 [facility] Prothrombin Time 16.6 Inr 1.4 Protime W/ Inr 06/05/2015 [facility] Prothrombin Time 42.1 Inr 3.5 Protime W/ Inr 06/01/2015 [facility] Prothrombin Time 39.7 Inr 3.3 Protime W/ Inr 05/28/2015 [facility] Prothrombin Time 29.4 Inr 2.5 Protime W/ Inr 05/25/2015 [facility] Prothrombin Time 96.0 Inr 8.0 Protime W/ Inr 05/15/2015 [facility] Draw Prothrombin Time 48.4 [phone] Inr 4.0 Protime W/ Inr 05/12/2015 [facility] Prothrombin Time greater than 960 Inr greater than 8.0 Protime W/ Inr 05/06/2015 [facility] Prothrombin Time 11.6 Inr 1.0 Laboratory test 01/27/2014 [facility] Inr 3.66 High 0.85-1.06 finding [address] [place] [address] [phone] Laboratory test 12/25/2013 [facility] Inr 2.57 High 0.85-1.06 finding [address] [place] [address] [phone] Laboratory test 12/06/2013 [facility] Inr 0.89 N 0.85-1.06 finding [address] [place] [address] [phone] Laboratory test 10/28/2013 [facility] Inr 0.88 N 0.85-1.06 finding [address] [place] [address] [phone] Laboratory test 10/04/2013 [facility] Inr 3.17 High 0.85-1.06 finding [address] [place] [address] [phone] Laboratory test 09/26/2013 [facility] Inr 1.02 N 0.85-1.[address] [place] [address] [phone] Laboratory test 07/13/2013 [facility] Inr 1.33 High 0.85-1.[address] [place] [address] [phone] Laboratory test 06/21/2013 [facility] Inr 1.15 High 0.85-1.[address] [place] [address] [phone] Laboratory test 05/22/2013 [facility] Inr 1.46 High 0.85-1.06 [address] [place] [address] [phone] Basic Metabolic 05/22/2013 [facility] Sodium 138 mmol/L N 133- [address] [place] [address] [phone] Potassium 4.4 mmol/L N 3.7-5.6 Chloride 108 mmol/L N 101-111 Co2 Carbon Dioxide 26 mmol/L N 22-32 Anion Gap 4 mmol/L N 2-11 Glucose 120 mg/dL High 70-100 Blood Urea Nitrogen 18 mg/dL N 6-24 Creatinine 1.18 mg/dL High 0.51-0.95 BUN/Creatinine Ratio 15.3 N 8-20 Calcium 10.0 mg/dL N 8.6-10.3 Egfr Non- 46.6 N >60 Egfr 59.9 N >60 30 Lipid Profile 05/22/2013 [facility] Triglycerides 178 mg/dL N 31 (Trig/Chol/HDL) [address] [place] [address] [phone] Cholesterol 153 mg/dL N 32 HDL Cholesterol 41.8 mg/dL N 33 LDL Cholesterol 76 mg/dL N 34 Laboratory test 05/22/2013 [facility] Hemoglobin A1c 6.8 % High Less than [address] [place] [address] 6.0 [place] [address] [phone] Laboratory test 05/10/2013 [facility] Inr 1.01 N 0.85-1.[address] [place] [address] [phone] Laboratory test 04/22/2013 [facility] Inr 2.07 High 0.85-1.[address] [place] [address] [phone] Laboratory test 04/09/2013 [facility] Inr 0.91 0.85-1.[address] [place] [address] [phone] Laboratory test 04/02/2013 [facility] Inr 1.12 High 0.85-1.[address] [place] [address] [phone] Laboratory test 03/29/2013 [facility] Inr 5.47 High 0.85-1.[address] [place] [address] [phone] Laboratory test 12/14/2012 [facility] Inr 2.02 High 0.87-0.[address] [place] [address] [phone] Laboratory test 11/14/2012 [facility] Inr 2.00 High 0.87-0.[address] [place] [address] [phone] 1 Because ethnic data is not always readily [...] 15-29 5 Kidney failure <15 (or dialysis) 2 [employer]: [id number] 3 Therapeutic target for the treatment of diabetes mellitus patients is <7% HBA1C, and in selective patients <6.0%. Please refer to [place] [employer] diabetic care guidelines for further information. 4 SEE RESULT BELOW Name: IRMA PAPPAS : [address]: Jesús Ge MD Acct: [id number] Unit: [id number] AGE: 67 Location: LAB Re05/03/18 SEX: F Status: REG REF SPEC: [id number] AUGUSTIN: 05/03/18-1530 [facility] [address]: Jesús Ge MD REQ: [id number] RECD: 05/03/18-1637 STATUS: ANUM JIMENEZ DR: Kyle Tsang MD _ SOURCE: NASAL SPDESC: ORDERED: Flu A B Request Procedure Result Reported Site Rapid Influenza A B Request Final 05/03/18- 1643 ML Specimen received for Influenza A/B Molecular testing * ML - Main Lab . END OF REPORT DEPARTMENT OF PATHOLOGY, [address] [place] [address] Luisito Miller M.D. Director [facility] # [id number] 5 ADDITIONAL INFORMATION This test was developed and its performance characteristics determined by [facility] in a manner consistent with CLIA requirements. This test has not been cleared or approved by the U.S. Food and Drug Administration. Test Performed by: [facility] - [address] [address] 6 ADDITIONAL INFORMATION This test was developed and its performance characteristics determined by [facility] in a manner consistent with CLIA requirements. This test has not been cleared or approved by the U.S. Food and Drug Administration. Test Performed by: [facility] - [address] [address] 7 Because ethnic data is not always readily [...] 15-29 5 Kidney failure <15 (or dialysis) 8 Therapeutic target for the treatment of diabetes mellitus patients is <7% HBA1C, and in selective patients <6.0%. Please refer to [place] [employer] diabetic care guidelines for further information. 9 Because ethnic data is not always readily [...] 15-29 5 Kidney failure <15 (or dialysis) 10 Desirable: <150 Borderline High: 150-199 High: 200-499 Very High: >500 11 Desirable: <200 Borderline High: 200-239 High: >239 12 Low: <40 Desirable: 40-60 High: >60 13 Desirable: <100 Near Optimal: 100-129 Borderline High: 130-159 High: 160-189 Very High: >189 14 Because ethnic data is not always readily [...] 15-29 5 Kidney failure <15 (or dialysis) 15 Acute inflammation: >10.00 16 [facility] Severe Sepsis and Septic Shock Management Bundle [...] 5 Kidney failure <15 (or dialysis) 19 Desirable <150 Borderline high 150-199 High 200-499 Very High >500 20 Desirable <200 Borderline high 200-239 High >239 21 Low <40 Desirable: 40-60 High: >60 22 Desirable: <100 mg/dL Near Optimal: 100-129 mg/dL Borderline High: 130-159 mg/dL High: 160-189 mg/dL Very High: >189 mg/dL 23 FASTING 24 Because ethnic data is not always readily [...] 15-29 5 Kidney failure <15 (or dialysis) 25 Desirable <150 Borderline high 150-199 High 200-499 Very High >500 26 Desirable <200 Borderline high 200-239 High >239 27 Low <40 Desirable: 40-60 High: >60 28 Desirable: <100 mg/dL Near Optimal: 100-129 mg/dL Borderline High: 130-159 mg/dL High: 160-189 mg/dL Very High: >189 mg/dL 29 PT IS FASTING 30 Because ethnic data is not always readily [...] 15-29 5 Kidney failure <15 (or dialysis) 31 Desirable <150 Borderline high 150-199 High 200-499 Very High >500 32 Desirable <200 Borderline high 200-239 High >239 33 Low <40 Desirable: 40-60 High: >60 34 Desirable <100 Near Optimal 100-129 Borderline high 130-159 High 160-189 Very High >189 35 Therapeutic target for the treatment of diabetes Mellitus patients is <7% HBA1C, and in selective patients <6.0%.Please refer to [place] [employer] Diabetic care guidelines for further information. Procedures Date Code Description Status 05/19/2016 021941884 Bone Mineral Density Test Completed 04/21/2015 [id number] Diabetic Retinal Eye Exam Completed 05/21/2014 [id number] Mammogram Completed 06/20/2013 [id number] Colonoscopy Completed 01/26/2011 08383 Insert Non-Tunneled Venous Catether Completed Encounters Type Date Location Provider Dx Diagnosis Office Visit 06/05/2018 DO Not Use Care Jesús Ge MD J44.9 Chronic [facility] 3[facility] F17.210 Nicotine dependence, cigarettes, uncomplicated E11.9 Type 2 diabetes mellitus without complications F41.9 Anxiety disorder, unspecified I10 Essential (primary) hypertension Office Visit 05/29/2018 3:20p DO Not Use Care Jesús Ge J44.9 Chronic Adenike ROGEL obstructive [facility] pulmonary disease, unspecified R06.02 Shortness of breath E11.9 Type 2 diabetes mellitus without complications R05 Cough Office Visit 05/03/2018 2:40p DO Not Use Care Jesús Ge F17.210 Nicotine Adenike ROGEL dependence, [facility] cigarettes, uncomplicated E11.9 Type 2 diabetes mellitus without complications F41.9 Anxiety disorder, unspecified G43.109 Migraine with aura, not intractable, w/o status migrainosus J45.909 Unspecified asthma, uncomplicated I10 Essential (primary) hypertension R53.83 Other fatigue Office Visit 01/18/2018 1:00p DO Not Use Care Jesús Ge MD E83.52 Hypercalcemia [facility] E11.9 Type 2 diabetes mellitus [...] Use Care Jesús Ge MD E83.52 Hypercalcemia [facility] E11.9 Type 2 diabetes mellitus without complications F41.9 Anxiety disorder, unspecified G43.109 Migraine with aura, not intractable, w/o status migrainosus F17.210 Nicotine dependence, cigarettes, uncomplicated M54.5 Low back pain E78.2 Mixed hyperlipidemia J45.909 Unspecified asthma, uncomplicated K21.9 Gastro-esophageal reflux disease without esophagitis J01.90 Acute sinusitis, unspecified Office Visit 11/16/2017 1:30p DO Not Use Care Jesús Ge, I10 Essential ( primary) [facility] MD hypertension [facility] E11.9 Type 2 diabetes mellitus without complications F17.210 Nicotine dependence, cigarettes, uncomplicated I63.9 Cerebral infarction, unspecified G43.109 Migraine with aura, not intractable, w/o status migrainosus F41.9 Anxiety disorder, unspecified E78.2 Mixed hyperlipidemia N32.81 Overactive bladder M54.5 Low back pain J45.909 Unspecified asthma, uncomplicated J01.90 Acute sinusitis, unspecified Office Visit 07/25/2017 3:00p [facility] Kyle E11.9 Type 2 diabetes Melyssa Tsang M.D. mellitus without Suite R complications J45.909 Unspecified asthma, uncomplicated G43.109 Migraine with aura, not intractable, w/o status migrainosus E78.2 Mixed hyperlipidemia Office Visit 06/27/2017 11:20a [facility] Kyle M25.532 Pain in left Melyssa Tsang M.D. wrist Suite R Office Visit 05/25/2017 1:40p [facility] Saar S81.011A Laceration Melyssa Molina, TECHNICAL TESTING ENGINEER without foreign Suite R body, right knee, init encntr S41.112A Laceration w/o foreign body of left upper arm, init encntr E11.9 Type 2 diabetes mellitus without complications S40.812D Abrasion of left upper arm, subsequent encounter S80.211D Abrasion, right knee, subsequent encounter Office Visit 04/24/2017 1:40p [facility] Opal Wright E11.9 Type 2 diabetes Melyssa Tsang M.D. mellitus without Suite R complications I10 Essential (primary) hypertension J45.909 Unspecified asthma, uncomplicated I63.9 Cerebral infarction, unspecified E78.2 Mixed hyperlipidemia Z12.31 Encntr screen mammogram for malignant neoplasm of breast J01.90 Acute sinusitis, unspecified Office Visit 01/24/2017 11:40a [facility] Kyle E11.9 Type 2 diabetes Melyssa Tsang M.D. mellitus without Suite R complications I10 Essential (primary) hypertension J45.909 Unspecified asthma, uncomplicated S80.869A Insect bite (nonvenomous), unsp lower leg, init encntr F17.210 Nicotine dependence, cigarettes, uncomplicated Z12.11 Encounter for screening for malignant neoplasm of colon Office Visit 10/28/2016 1:40p [facility] Opal Tsang, Z00.00 Encntr for Medicine - Erica general adult Suite R medical exam w/o abnormal findings H66.91 Otitis media, unspecified, right ear N32.81 Overactive bladder F17.210 Nicotine dependence, cigarettes, uncomplicated Office Visit 09/16/2016 [facility] Opal Wright 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 use of [...] Acquired coagulation factor deficiency Office Visit 04/29/2016 [facility] Opal Wright T63.301A Toxic effect of 2:20p Melyssa Tsang M.D. unsp spider Suite R venom, accidental, init J20.9 Acute bronchitis, unspecified Office Visit 04/14/2016 2:40p Amelie Wright E11.9 Type 2 diabetes Melyssa Tsang M.D. 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 Z12.11 Encounter for screening for malignant neoplasm of colon B37.9 Candidiasis, unspecified I69.898 Other sequelae of other cerebrovascular disease J45.20 Mild intermittent asthma, uncomplicated R56.9 Unspecified convulsions Office Visit 06/12/2015 3:00p [facility] Jeff Babcock, I10 Essential ( primary) Medicine - Suite TECHNICAL TESTING ENGINEER hypertension R I69.898 Other sequelae of other cerebrovascular disease Z79.01 alf (current) use of anticoagulants Office Visit 05/25/2015 1:40p [facility] Jeff Mauritian, Z79.01 alf (current) Medicine - TECHNICAL TESTING ENGINEER use of Suite R anticoagulants I69.898 Other sequelae of other cerebrovascular disease I10 Essential (primary) hypertension N32.81 Overactive bladder I69.334 Monoplg upr lmb fol cerebral infrc aff left nondom side Office Visit 05/04/2015 2:00p [facility] Dominic Fernie, I10 Essential ( primary) Medicine - Suite M.D. 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 Office Visit 12/28/2012 Yariel Montenegro 345.40 Local-Related 11:45a Neurologic Erica Betancourt Epilepsy W/O [facility] Mention Of Intractable Epilepsy 438.89 Cerebrovascular [...] 12/23/2011 Yariel Montenegro 438.89 Cerebrovascular 11:30a Neurologic Stackman, Disease Late [facility] Erica Other 780.39 Convulsions Other Plan of Treatment Future Appointment(s):08/06/2018 1:40 pm - Cindi Ng DO at [facility] Internal Medicine - Suite [address]/02/2018 - Gerson Elaine MDJ44.9 Chronic obstructive pulmonary disease, unspecifiedNew Xrays:CT Lung Screening-Low Dose, Ordered: New Orders:6 Minute Walk, Ordered: 08/02/18PFTW/Spirometry Vol Pre/Post Bronchdilat Dlco Complete, Ordered: 08/02/18Comments:Continue Advair and Spiriva. We will get full PFTs, 6 minute walk and a low dose CT chest for lung cancer screening. I also recommend that she see a Associate Professor to get worked up for a connective tissue disease as her CRP is 44.G47.30 Sleep apnea, unspecifiedNew Orders:Sleep Study Over Night & Cpap Titration If Positive, Ordered: 08/02/18Comments:We will send her for a sleep study.
[2018-08-14 16:31] LABS: ABS Basophils 0.2 10^3/ul (0-0.2); ABS Eosinophils 0.2 10^3/ul (0-0.6); ABS Lymphocytes 3.5 10^3/ul (1.0-4.8); ABS Monocytes 0.7 10^3/ul (0-0.8); ABS Neutrophils 8.4 10^3/ul (1.5-7.7); Eosinophil % 1.5 %; Hematocrit 43 % (35-47); Hemoglobin 14.4 g/dL (12.0-16.0); Lymphocyte % 27.1 %; Mean Corpuscular HGB Conc 33 g/dL (31-36); Mean Corpuscular Hemoglobin 30 pg (27-31); Mean Corpuscular Volume 90 fL (80-97); Mean Platelet Volume 8.4 fL (7.4-10.4); Platelet Count 279 10^3/uL (150-450); Red Cell Distribution Width 15 % (10-15); White Blood Count 12.9 10^3/uL (3.5-10.8)
[2018-08-14 16:43] LABS: INR 1.3 (0.82-1.09)
[2018-08-14 16:49] LABS: Albumin 4.3 g/dL (3.2-5.2); Albumin/Globulin Ratio 1.3 (1-3); BUN/Creatinine Ratio 19.7 (8-20); Calcium 10.9 mg/dL (8.6-10.3); EGFR Non-African American 46.3 (>60); Globulin 3.2 g/dL (2-4); Total Bilirubin 0.4 mg/dL (0.2-1.0); Total Protein 7.5 g/dL (6.4-8.9)
[2018-08-14 16:51] LABS: Troponin I 0.01 ng/mL (<0.04)
[2018-08-14] MEDS ORDERED: Lidocaine PATCH 5%* 1 PATCH TRANSDERM ONE (16:59)
[2018-08-14 17:25] VITALS: BP 177/67
[2018-08-14] MEDS ORDERED: Lidocaine Patch REMOVE* 1 NOTE MISC SCH (21:00)
== END 2018-08-14 17:23 | disposition home or self-care (01) ==
LOC: ED 15:13
DX: M25.511 Pain in right shoulder (principal); I10 Essential (primary) hypertension; F17.210 Nicotine dependence, cigarettes, uncomplicated; Z79.01 Long term (current) use of anticoagulants; I25.2 Old myocardial infarction; Z88.5 Allergy status to narcotic agent; Z88.8 Allergy status to other drugs, medicaments and biological substances; Z91.041 Radiographic dye allergy status; M19.011 Primary osteoarthritis, right shoulder; M50.30 Other cervical disc degeneration, unspecified cervical region; M47.892 Other spondylosis, cervical region
CPT/HCPCS: 36415; 70450; 72125; 80053; 84484; 85025; 85610; 93005; 99282; A9270-GY

== ENCOUNTER 2018-08-15 04:48 | Emergency (ER) | payer MEDICARE, MEDICAID ==
--- NOTE | 2018-08-15 05:42 | ED ---
Dizziness - HPI Summary HPI Summary: A 67 y/o F presents to ED c/o dizziness onset 4 days ago. Patient says she has baseline dizziness with migraines but it changed four days ago, where the room starts spinning when she stands. These episodes last about 30 minutes. Associated sx: tinnitus in ears; nausea; R Shoulder pain with limited ROM and numbness onset yesterday afternoon. She denies any recent trauma to her arm. Denies CP. She took muscle relaxer and Valium before bed. She was able to go to sleep, but the RUE pain returned in the night. When she woke up and stood up, she had an episode of dizziness. Patient was seen at [facility] for the same sx on 08/14/18 and discharged home. PMHx: migraines, osteoporosis. - History Of Current Complaint Chief Complaint: EDDizziness Stated Complaint: PAIN IN SHOULDER PER PT Time Seen by Provider: 08/15/18 05:34 Hx Obtained From: Patient Onset/Duration: Still Present Timing: Intermittent Episode Lasting - 30 mins (dizziness) Severity Initially: Moderate Severity Currently: Moderate Character: Room Spinning Aggravating Factor(s): Position Change Associated Signs And Symptoms: Positive: Nausea, Tinnitus, Other: - pos: R Shoulder pain with limited ROM and numbness. Negative: Chest Pain - Allergies/Home Medications Allergies/Adverse Reactions: Allergies Allergy/AdvReac Type Severity Reaction Status Date / Time hydrocortisone Allergy Swelling Verified 08/14/18 15:18 Of Face,Lips,& Throat Iodinated Contrast- Oral and Allergy Swelling Verified 08/14/18 15:18 IV Dye Of Face,Lips,& Throat meperidine [From Demerol] Allergy Swelling Verified 08/14/18 15:18 Of Face,Lips,& Throat morphine Allergy Swelling Verified 08/14/18 15:18 Of Face,Lips,& Throat Penicillins Allergy Swelling Verified 08/14/18 15:18 Of Face,Lips,& Throat bee stings Allergy Severe Swelling Uncoded 08/14/18 15:18 Of Face,Lips,& Throat hydrocortisone Allergy Anaphylatic Uncoded 08/14/18 15:18 Shock mushrooms Allergy Swelling Uncoded 08/14/18 15:18 Of Face,Lips,& Throat PMH/Surg Hx/FS Hx/Imm Hx Previously Healthy: No Endocrine/Hematology History: Reports: Hx Anticoagulant Therapy Cardiovascular History: Reports: Hx Hypertension Denies: Hx Pacemaker/ICD Musculoskeletal History: Denies: Hx Rheumatoid Arthritis, Hx Osteoporosis Sensory History: Denies: Hx Hearing Aid Psychiatric History: Denies: Hx Panic Disorder - Surgical History Surgery Procedure, Year, and Place: Back - Immunization History Immunizations Up to Date: Yes Infectious Disease History: No Infectious Disease History: Denies: Traveled Outside the [place] in Last 30 Days - Family History Known Family History: Positive: Other - breast CA - Social History Occupation: Disabled Lives: Alone Alcohol Use: None Hx Substance Use: No Substance Use Type: Reports: None Hx Tobacco Use: Yes Smoking Status (MU): Light Every Day Tobacco Smoker Review of Systems Positive: Other - pos: tinnitus Negative: Chest Pain Positive: Nausea Positive: Arthralgia - R shoulder, Decreased ROM - R shoulder Neurological: Other - pos: dizziness Positive: Numbness - R shoulder All Other Systems Reviewed And Are Negative: Yes Physical Exam - Summary Physical Exam Summary: Constitutional: Well-developed, Well-nourished, Alert. (-) Distressed Skin: Warm, Dry HENT: Normocephalic; Atraumatic Eyes: Conjunctiva normal Neck: Musculoskeletal ROM normal neck. (-) JVD, (-) Stridor, (-) Tracheal deviation Cardio: Rhythm regular, rate normal, Heart sounds normal; Intact distal pulses; The pedal pulses are 2+ and symmetric. Radial pulses are 2+ and symmetric. Murmur Pulmonary/Chest wall: Effort normal. (-) Respiratory distress, (-) Wheezes, (-) Rales Abd: Soft, diffuse tenderness to abd, (-) Distension, (-) Guarding, (-) Rebound Musculoskeletal: (-) Edema; Tenderness to palpation of R shoulder Lymph: (-) Cervical adenopathy Neuro: Alert, Oriented x3 Psych: Mood and affect Normal Triage Information Reviewed: Yes Vital Signs On Initial Exam: Initial Vitals Temp Pulse Resp BP Pulse Ox 97.8 F 74 18 133/71 94 08/15/18 04:50 08/15/18 04:50 08/15/18 04:50 08/15/18 04:50 08/15/18 04:50 Vital Signs Reviewed: Yes Diagnostics - Vital Signs Vital Signs Temp Pulse Resp BP Pulse Ox 08/15/18 04:50 97.8 F 74 18 133/71 94 - Laboratory Lab Statement: Any lab studies that have been ordered have been reviewed, and results considered in the medical decision making process. - EKG 0506 Cardiac Rate: NL - 71 bpm EKG Rhythm: Sinus Rhythm Summary of EKG Findings: EKG shows NSR 71 bpm. Nml axis, nml TN, nml QRS and QTC. ST is normal. T-waves are fine. Overall: Non-specific EKG with artifact. Re-Evaluation - Re-Evaluation 1 Re-Evaluation Time: 06:51 Change: Unchanged Comment: Discussing pain management for while in ED. Pt agreeable to shot of Toradol, and f/u to ortho. Dizzy Course/Dx - Course Course Of Treatment: Patient is a 67 y/o F presenting with dizziness (room- spinning) onset 4 days ago. Associated sx: tinnitus in ears; nausea; R Shoulder pain with limited ROM and numbness onset yesterday afternoon. returned in the night. When she woke up and stood up, she had an episode of dizziness. Patient was seen at [facility] for the same sx on 08/14/18 and discharge home. PE finds heart murmur, tenderness to palpation of R shoulder, diffusely tender abd. EKG shows NSR 71 bpm. Nml axis, nml TN, nml QRS and QTC. ST is normal. T-waves are fine. Overall: Non-specific EKG with artifact. Patient given Toradol in ED. Patient will be discharged home to f/u with ortho. Discharge - Sign-Out/Discharge Documenting (check all that apply): Patient Departure - D/C Patient Received Moderate/Deep Sedation with Procedure: No - Discharge Plan Condition: Stable Disposition: HOME Patient Education Materials: Shoulder Pain (ED) Print Language: PERUVIAN Referrals: Jesús Ge MD [Primary Care Provider] - Henrik Manjarrez MD [Medical Doctor] - - Attestation Statements Document Initiated by Scribe: Yes Documenting Scribe: Galindo Givens Provider For Whom Scribe is Documenting (Include Credential): Dr. Delia Gotti MD Scribe Attestation: Max, Galindo Givens, scribed for Dr. Delia Gotti MD on at 0711. Status of Scribe Document: Ready
[2018-08-15] MEDS ORDERED: Ketorolac INJ* 30 MG/ML 1 ML VIAL IM ONE (06:51)
[2018-08-15 07:12] VITALS: BP 118/77
== END 2018-08-15 07:05 | disposition home or self-care (01) ==
LOC: ED 04:48
DX: R42 Dizziness and giddiness (principal); R11.0 Nausea; Z79.01 Long term (current) use of anticoagulants; Z88.0 Allergy status to penicillin; F17.210 Nicotine dependence, cigarettes, uncomplicated; M25.511 Pain in right shoulder
CPT/HCPCS: 93005; 96372; 99283; J1885

== ENCOUNTER 2018-08-22 16:11 | Emergency (ER) | payer MEDICARE, MEDICAID ==
[2018-08-22] MEDS ORDERED: Calcium CHLORIDE 10% SYRINGE* 1 GM/10 ML ONE (16:14)
[2018-08-22] MEDS ORDERED: Sodium Bicarbonate 8.4%* 50 ML SYRINGE ONE (16:14)
[2018-08-22] MEDS ORDERED: EPINEPHrine SYR 0.1MG/ML* SYRINGE ONE (16:14)
--- NOTE | 2018-08-22 16:40 | ED ---
Cardiac Resuscitation - HPI Summary HPI Summary: This patient is a 67 year old F presenting to [facility] by EMS with a chief complaint of cardiac arrest beginning at an unknown period of time. Per EMS, pt was found by a bystander passed out in car. Pt was very hot to touch , and she was in car for an unknown period of time. In car there were many epi pen injectors. After pt was taken out of car EMS gave patient IV fluids, Narcan. Pt was found to be pulseless, and given CPR. EMS arrived on the seen at approx. 15:55, and first dose of epinephrine was given at 16:00. The last epinephrine EMS gave was at 16:08, and pt was given a total of 3 epinephrine injections, pt was also given bicarb, last dose 16:07. Pt arrived to [facility] at 16:09, on LBD-CPR. Dr. Schrader was present in room prior to pt arrival. Time of expiration - 16:30 LEVEL 5 CAVEAT - EXTREMIS - History of Current Complaint Chief Complaint: EDCardiacArrest Stated Complaint: ABC ALERT PER EMS Time Seen by Provider: 08/22/18 16:17 Hx Obtained From: EMS Hx From Patient Unobtainable Due To: Extremis Onset/Duration: Minutes/Hours: - 30 minutes Arrest Witnessed: No - Allergies/Home Medications Allergies/Adverse Reactions: Allergies Allergy/AdvReac Type Severity Reaction Status Date / Time hydrocortisone Allergy Swelling Verified 08/14/18 15:18 Of Face,Lips,& Throat Iodinated Contrast- Oral and Allergy Swelling Verified 08/14/18 15:18 IV Dye Of Face,Lips,& Throat meperidine [From Demerol] Allergy Swelling Verified 08/14/18 15:18 Of Face,Lips,& Throat morphine Allergy Swelling Verified 08/14/18 15:18 Of Face,Lips,& Throat Penicillins Allergy Swelling Verified 08/14/18 15:18 Of Face,Lips,& Throat bee stings Allergy Severe Swelling Uncoded 08/14/18 15:18 Of Face,Lips,& Throat hydrocortisone Allergy Anaphylatic Uncoded 08/14/18 15:18 Shock mushrooms Allergy Swelling Uncoded 08/14/18 15:18 Of Face,Lips,& Throat - Past Medical History Past Medical History: Unobtainable Due to Extremis - LEVEL 5 CAVEAT- EXTREMIS - Family History Family History: Unobtainable Due to Extremis - LEVEL 5 CAVEAT- EXTREMIS - Social History Social History: Unobtainable Due to Extremis - LEVEL 5 CAVEAT- EXTREMIS - Review of Systems Review of Systems: Unobtainable Due to Extremis - LEVEL 5 CAVEAT- EXTREMIS Physical Examination - Summary Physical Exam Summary: VITAL SIGNS: Reviewed. GENERAL: Patient is unresponsive. Patient was not intubated by EMS. HEAD AND FACE: No signs of trauma. No ecchymosis, hematomas or skull depressions. EYES: Pupils dilated and fixed MOUTH: Oral mucosa dry NECK: Supple, trachea is midline, no adenopathy, no JVD, no carotid bruit. LUNGS: Decreased breath sounds. CVS: No cariac activity and in active CPR ABDOMEN: Obese, disytended and no BS. EXTREMITIES: No edema noted. IO in the left leg NEURO: Unresponsive SKIN: Dry and warm. Positive meddling of the abdomen down to the legs Procedures - Procedure Summary Procedure Summary: Procedure - Endotracheal Intubation Permit was implied secondary to emergent situation. An LMA and bougie were placed within arm's reach. A Glidescope blade was inserted into the oropharynx at which time the vocal cords were visualized. A 7.5 Albanian endotracheal tube was inserted and visualized going through the vocal cords. The stylet was removed. Colorimetric change was visualized on the CO2 meter. Breath sounds were heard in both lung campos equally. The endotracheal tube was placed at 23 cm, measured at the teeth. Intubation was made at the first attempt. No complications were encountered. Cardiac Resus. Course/Dx - Course Course Of Treatment: Procedure - Endotracheal Intubation. Permit was implied secondary to emergent situation. An LMA and bougie were placed within arm's reach. A Glidescope blade was inserted into the oropharynx at which time the vocal cords were visualized. A 7.5 Albanian endotracheal tube was inserted and visualized going through the vocal cords. The stylet was removed. Colorimetric change was visualized on the CO2 meter. Breath sounds were heard in both lung campos equally. The endotracheal tube was placed at 23 cm, measured at the teeth. Intubation was made at the first attempt. No complications were encountered. Assessment/Plan: Patients past medical history significant for: dyslipidemia, insulin-dependent diabetes, morbid obesity, CVA, CAD, chronic back pain, chronic pain, spinal stenosis, right carotid occlusion, seizure disorder, and cataracts. As per EMS the patient was found unresponsive in the car, they do not know for how long the patient was unresponsive. As per EMS the patient was with agonal respirations, take her out of the car did obtain an IO access and the patient was given IV fluids, Narcan. They checked for pulses and the patient was pulseless therefore they started CPR. The patient was given 3 doses of epinephrine, bicarbonate and the patient was brought into the emergency for further assessment. In the ED course the patient was placed in a manager monitoring, which is pulses and the patient is pulseless. Therefore we continued CPR. The patient was given 8 doses of epinephrine, one dose of bicarbonate, and 1 calcium gluconate. The patient was intubated without any difficulty at the first attempt. However after approximately 35 minutes of CPR the patient did not regain any pulses and did not have any cardiac activity. I checked the cardiac activity with an ultrasound and there was no cardiac activity. Therefore at this time I addressed all resuscitating efforts at 4:30 PM. At this point I informed the patients son-in-law ( the only family member ) about the events, and he will inform all the family. He reports that her daughter with back to have a biopsy to find out the cause of . I discussed the case with Nieves Conroy and she will take jurisdiction over the case. The patient will be transferred to the [facility]. - Diagnoses Provider Diagnoses: Cardiorespiratory arrest - Provider Notifications Discussed Care Of Patient With: Nieves Conroy Time Discussed With Above Provider: 17:05 Instructed by Provider To: Other - Discussed pt's case with Nieves Conroy, who will take jurisdiction of the case. - Critical Care Time Critical Care Time: 30-74 min Discharge - Sign-Out/Discharge Documenting (check all that apply): Patient Departure - - 16:30 - Discharge Plan Condition: Disposition: Referrals: Jesús Ge MD [Primary Care Provider] - - Billing Disposition and Condition Condition: Disposition: - Attestation Statements Document Initiated by Scribe: Yes Documenting Scribe: Isa Reese Provider For Whom Scribe is Documenting (Include Credential): Dr. Jonathan Schrader MD Scribe Attestation: Isa Santana, scribed for Dr. Jonathan Schrader MD on 08/22/18 at 2154. Scribe Documentation Reviewed: Yes Provider Attestation: The documentation as recorded by the scribe, Isa Reese accurately reflects the service I personally performed and the decisions made by me, Dr. Jonathan Schrader MD Status of Scribe Document: Viewed
[2018-08-22 20:31] LABS: Hepatitis B Surface Ab Not Immune (Immune)
[2018-08-22 20:32] LABS: Hepatitis C Antibody Negative (Negative)
[2018-08-22 20:42] LABS: HIV 4th Generation Negative (Negative)
== END 2018-08-22 17:36 | disposition expired ==
LOC: EDUNIT# → EDBD → ED 16:11
DX: I46.9 Cardiac arrest, cause unspecified (principal); Z88.0 Allergy status to penicillin
CPT/HCPCS: 31500; 36415; 86706; 86803; 87389; 99283; J0171